=== PATIENT | male | born 1970 | race Caucasian/White ===

== ENCOUNTER 2020-09-19 00:42 | Inpatient (IN) | payer BC, MEDICARE ==
[~2020-09-19] VITALS: Ht 172.7 cm; Wt 115.9 kg
[2020-09-19 01:31] LABS: BASOPHILS % (AUTO) 0.2 % (0-1); EOSINOPHILS % (AUTO) 0 % (0-6); HEMATOCRIT 38.3 % (42.0-52.0); HEMOGLOBIN 13.2 g/dl (14.0-17.9); LYMPHOCYTES # (AUTO) 0.8 X10'3 (1.1-4.8); LYMPHOCYTES % (AUTO) 13.3 % (21-51); MEAN CORPUSCULAR HEMOGLOBIN 30.9 PG (27.0-31.0); MEAN CORPUSCULAR HGB CONC 34.6 g/dL (33.0-36.5); MEAN CORPUSCULAR VOLUME 89.1 FL (78-98); MEAN PLATELET VOLUME 9.5 FL (7.4-10.4); MONOCYTES # (AUTO) 0.5 X10'3 (0-0.9); MONOCYTES % (AUTO) 8.3 % (2-12); NEUTROPHILS # (AUTO) 4.4 X10'3 (1.8-7.7); NEUTROPHILS % (AUTO) 78.2 % (42-75); PLATELET COUNT 158 X10'3 (140-440); RED BLOOD COUNT 4.29 X10'6 (4.70-6.10); RED CELL DISTRIBUTION WIDTH 13.4 % (11.5-14.5); WHITE BLOOD COUNT 5.7 X10'3 (4.5-11.0)
[2020-09-19] MEDS ORDERED: LANS30CA56 PO (01:43)
[2020-09-19] MEDS ORDERED: MODA200T48 PO (01:44)
[2020-09-19] MEDS ORDERED: VILA40TA PO (01:45)
[2020-09-19] MEDS ORDERED: LOSA25TA96 PO (01:46)
[2020-09-19] MEDS ORDERED: DULO-31 PO (01:48)
[2020-09-19] MEDS ORDERED: AMLO2.5T2 PO (01:48)
[2020-09-19 01:49] LABS: ABG BASE EXCESS -0.9 mmol/L (-2.0-2.0); ABG HCO3 22.2 mmol/L (22.0-26.0); ABG OXYGEN SATURATION 92.2 % (94-97); ABG PCO2 (T) 34.1 mmHg (35.0-48.0); ABG PO2 (T) 64.5 mmHg (75.0-100.0); ALLEN'S TEST POSITIVE; FCOHb 0.4 % (0.0-3.9); FLOW 15 L/min; FMetHb 0.1 % (0.0-1.5); FO2Hb 91.7 % (94-97); PATIENT TEMPERATURE 38.1
[2020-09-19] MEDS ORDERED: LORA2TAB96 PO (01:50)
[2020-09-19] MEDS ORDERED: METO-467 PO (01:51)
[2020-09-19] MEDS ORDERED: ARMO250T4 PO (01:52)
[2020-09-19] MEDS ORDERED: ASEN10TA SL (01:53)
--- NOTE | 2020-09-19 01:54 | NUR ---
Mother YVETTE VALENTINE [[id number]] [phone]
[2020-09-19 01:57] LABS: ALANINE AMINOTRANSFERASE 55 U/L (12-78); ALBUMIN 2.8 G/DL (3.4-5.0); ALBUMIN/GLOBULIN RATIO 0.7 (1.1-1.5); ALKALINE PHOSPHATASE 61 IU/L (46-116); ANION GAP 12 (8-16); ASPARTATE AMINO TRANSFERASE 56 U/L (10-37); BILIRUBIN,TOTAL 0.5 MG/DL (0.1-1.0); BLOOD UREA NITROGEN 13 MG/DL (7-18); BUN/CREATININE RATIO 10.1 (5.4-32.0); CALCIUM 7.6 MG/DL (8.5-10.1); CHLORIDE 97 MMOL/L (99-107); CREATININE 1.29 MG/DL (0.60-1.10); GLUCOSE 111 MG/DL (70-104); POTASSIUM 3.2 MMOL/L (3.5-5.1); SODIUM 132 MMOL/L (135-145); TOTAL CARBON DIOXIDE 22.7 MMOL/L (24-32); TOTAL PROTEIN 6.6 G/DL (6.4-8.2); eGFR 59 ML/MIN
[2020-09-19] MEDS ORDERED: dexamethasone sod phosphate 10mg/ml inj IV STA (02:01)
[2020-09-19 02:20] LABS: C-REACTIVE PROTEIN 13.94 MG/DL (0.0-0.5); LACTATE DEHYDROGENASE 389 U/L (85-227)
[2020-09-19 02:23] LABS: FERRITIN 2984 NG/ML (26-388)
[2020-09-19] MEDS ORDERED: LORazepam 2 mg/ml vial IV ONE ×2 (02:50→03:25)
[2020-09-19 02:58] LABS: D-DIMER 0.55 MG/L FEU (0-0.50)
[2020-09-19 03:30] LABS: CLARITY,URINE CLEAR (Clear); COLOR,URINE YELLOW (Yellow); GLUCOSE, URINE NEGATIVE (Neg); KETONES,URINE 15 mg/dl (Neg); LEUKOCYTE ESTERASE ,URINE NEGATIVE (Neg); NITRITES, URINE NEGATIVE (Neg); OCCULT BLOOD,URINE SMALL (Neg); PROTEIN,URINE 100 mg/dl (Neg)
[2020-09-19] MEDS ORDERED: REMDESIVIR 100MG inj. 200 MG in normal saline 100ml IV soln 100 ML IV ONE (03:35)
[2020-09-19 03:37] LABS: UA COLLECTION TYPE URINAL
[2020-09-19 03:38] LABS: BACTERIA,URINE FEW /HPF (Neg); RBC,URINE 0-2 /HPF (0-2); SQUAMOUS EPITHELIAL CELL,UR FEW /LPF (FEW); WBC,URINE NONE SEEN /HPF (0-4)
--- NOTE | 2020-09-19 03:38 | NUR ---
pt becoming increasingly anxious, pulling ofF O2, and monitors. MD order for ativan to calm patient.
[2020-09-19] MEDS ORDERED: ondansetron/PF 4mg/2ml inj IV PRN (04:00)
[2020-09-19] MEDS ORDERED: magnesium hydroxide 30ml (MOM) UD suspension PO PRN (04:00)
[2020-09-19] MEDS ORDERED: acetaminophen 325mg tablet PO PRN (04:00)
--- NOTE | 2020-09-19 05:53 | NUR ---
Patient in room ED 1. I have received report from Cyndi GARNICA (Bianka GARNICA) and had the opportunity to ask questions and assume patient care.
--- NOTE | 2020-09-19 06:10 | NUR ---
pt to floor
[2020-09-19 06:11] VITALS: BP 144/91
--- NOTE | 2020-09-19 06:30 | NUR ---
Patient in room 4008. I have received report from Casandra GARNICA and had the opportunity to ask questions and assume patient care. Addendum: 09/19/20 at 0649 by Richa Lopez RN Problems reprioritized. Patient report given, questions answered & plan of care reviewed with Casandra GARNICA.
[2020-09-19] MEDS ORDERED: modafinil 100mg tablet PO SCH (08:00)
[2020-09-19] MEDS ORDERED: VILAZODONE HYDROCHLORIDE 40 MG PO SCH (08:00)
[2020-09-19] MEDS ORDERED: enoxaparin 100mg/ml syringe SUBCUT SCH (08:00)
[2020-09-19] MEDS ORDERED: dexamethasone inj 6 MG in normal saline 100ml IV soln 100 ML IV SCH (08:00)
[2020-09-19] MEDS: ARMODAFINIL 250 MG PO SCH (08:00)
[2020-09-19] MEDS: REMDESIVIR 100MG inj. 100 MG in normal saline 100ml IV soln 100 ML IV SCH (08:34)
[2020-09-19] MEDS: normal saline 1000ml 1,000 ML IV SCH ×2 (08:35→19:37)
[2020-09-19] MEDS: pantoprazole 40 MG vial IV SCH (08:36)
[2020-09-19] MEDS: duloxetine 30mg CAPSULE.DR PO SCH (08:37)
[2020-09-19] MEDS: asenapine 5mg TAB.SUBL SL SCH ×2 (08:38→19:32)
[2020-09-19] MEDS: LORazepam 1 MG tablet PO PRN ×3 (08:38→19:32)
[2020-09-19] MEDS: enoxaparin 60mg/0.6ml syringe SUBCUT SCH ×2 (08:39→19:32)
[2020-09-19 09:10] VITALS: BP 164/77
[2020-09-19] MEDS: losartan 50mg tablet PO SCH (09:10)
[2020-09-19] MEDS: metoprolol tartrate 25mg tablet PO SCH ×2 (09:10→19:32)
[2020-09-19] MEDS: amLODIPine 5mg tablet PO SCH (09:10)
[2020-09-19] MEDS: CefTRIAXone 2gm/D5W 50ml BAG 50 ML IV SCH (13:34)
[2020-09-19 14:00] VITALS: BP 106/81
--- NOTE | 2020-09-19 15:17 | NUR ---
PAGER ID: [phone] MESSAGE: [phone] Timothy, need robitussin for cough please [phone] FRANCISCO
--- NOTE | 2020-09-19 16:25 | NUR ---
Patient is forgetful/confused frequently takes oxygen off and desats to low 80's. Dr bledsoe, telemetry monitoring.
[2020-09-19] MEDS: guaiFENesin/codeine phos 10ml UD oral syrup PO PRN (16:33)
[2020-09-19 18:00] VITALS: BP 128/72
--- NOTE | 2020-09-19 18:00 | NUR ---
pt on 15L NRB and 15L High flow oxygen. sats 94%
--- NOTE | 2020-09-19 18:34 | NUR ---
Report to ROSA LEE RN
--- NOTE | 2020-09-19 18:35 | NUR ---
Patient in room ORTHO 4008. I have received report from FRANCISCO GARNICA and had the opportunity to ask questions and assume patient care.
[2020-09-19] MEDS: dexamethasone inj 6 MG in normal saline 100ml IV soln 100 ML IV SCH (19:31)
[2020-09-19 22:00] VITALS: BP 114/72
[2020-09-19] MEDS: LORazepam 2 mg/ml vial IV PRN (22:40)
--- NOTE | 2020-09-20 00:35 | NUR ---
DR. BRADSHAW WAS ON THE ORTHO NEURO FLOOR WAS MADE AWARE OF POSITIVE BLOOD CULTURE GRAM + COCCI AEROBIC BOTTLE DRAWN 09/19 AT 0131 LEFT AC AT 21.76 HRS. PATIENT IS ON ROCEPHIN. NO NEW ORDERS MADE.
[2020-09-20] MEDS: LORazepam 2 mg/ml vial IV PRN ×3 (01:50→22:56)
[2020-09-20 02:00] VITALS: BP 137/93
[2020-09-20] MEDS: diphenhydrAMINE 25mg capsule PO PRN ×2 (03:13→19:29)
[2020-09-20] MEDS: LORazepam 1 MG tablet PO PRN ×2 (05:11→17:36)
[2020-09-20] MEDS: guaiFENesin/codeine phos 10ml UD oral syrup PO PRN ×2 (05:11→22:56)
[2020-09-20 06:00] VITALS: BP 151/76
--- NOTE | 2020-09-20 06:33 | NUR ---
Problems reprioritized. Patient report given, questions answered & plan of care reviewed with .
--- NOTE | 2020-09-20 06:34 | NUR ---
Patient in room ORTHO 4008. I have received report from NAHUN Lopez and had the opportunity to ask questions and assume patient care.
[2020-09-20 06:59] LABS: BASOPHILS % (AUTO) 0.1 % (0-1); EOSINOPHILS % (AUTO) 0 % (0-6); HEMATOCRIT 40.3 % (42.0-52.0); HEMOGLOBIN 13.8 g/dl (14.0-17.9); LYMPHOCYTES # (AUTO) 0.6 X10'3 (1.1-4.8); LYMPHOCYTES % (AUTO) 8.9 % (21-51); MEAN CORPUSCULAR HEMOGLOBIN 30.6 PG (27.0-31.0); MEAN CORPUSCULAR HGB CONC 34.3 g/dL (33.0-36.5); MEAN CORPUSCULAR VOLUME 89.2 FL (78-98); MEAN PLATELET VOLUME 9.2 FL (7.4-10.4); MONOCYTES # (AUTO) 0.5 X10'3 (0-0.9); NEUTROPHILS # (AUTO) 5.4 X10'3 (1.8-7.7); PLATELET COUNT 201 X10'3 (140-440); RED BLOOD COUNT 4.52 X10'6 (4.70-6.10); RED CELL DISTRIBUTION WIDTH 13.4 % (11.5-14.5); WHITE BLOOD COUNT 6.6 X10'3 (4.5-11.0)
[2020-09-20 07:21] LABS: ALANINE AMINOTRANSFERASE 78 U/L (12-78); ALBUMIN 2.8 G/DL (3.4-5.0); ALBUMIN/GLOBULIN RATIO 0.6 (1.1-1.5); ALKALINE PHOSPHATASE 69 IU/L (46-116); ANION GAP 10 (8-16); ASPARTATE AMINO TRANSFERASE 80 U/L (10-37); BILIRUBIN,TOTAL 0.4 MG/DL (0.1-1.0); BLOOD UREA NITROGEN 14 MG/DL (7-18); BUN/CREATININE RATIO 14.7 (5.4-32.0); C-REACTIVE PROTEIN 10.28 MG/DL (0.0-0.5); CALCIUM 8.4 MG/DL (8.5-10.1); CHLORIDE 102 MMOL/L (99-107); CREATININE 0.95 MG/DL (0.60-1.10); GLUCOSE 129 MG/DL (70-104); SODIUM 138 MMOL/L (135-145); TOTAL PROTEIN 7.2 G/DL (6.4-8.2); eGFR 84 ML/MIN
[2020-09-20 07:22] LABS: D-DIMER 0.53 MG/L FEU (0-0.50)
[2020-09-20] MEDS: pantoprazole 40 MG vial IV SCH (07:29)
[2020-09-20] MEDS: dexamethasone inj 6 MG in normal saline 100ml IV soln 100 ML IV SCH ×2 (07:29→19:28)
[2020-09-20] MEDS: CefTRIAXone 2gm/D5W 50ml BAG 50 ML IV SCH (07:33)
[2020-09-20] MEDS: REMDESIVIR 100MG inj. 100 MG in normal saline 100ml IV soln 100 ML IV SCH (07:33)
[2020-09-20] MEDS: losartan 50mg tablet PO SCH (07:34)
[2020-09-20] MEDS: metoprolol tartrate 25mg tablet PO SCH ×2 (07:35→19:29)
[2020-09-20] MEDS: duloxetine 30mg CAPSULE.DR PO SCH (07:35)
[2020-09-20] MEDS: amLODIPine 5mg tablet PO SCH (07:36)
[2020-09-20] MEDS: ARMODAFINIL 250 MG PO SCH (07:36)
[2020-09-20] MEDS: asenapine 5mg TAB.SUBL SL SCH ×2 (07:37→19:29)
[2020-09-20] MEDS: enoxaparin 60mg/0.6ml syringe SUBCUT SCH ×2 (07:39→19:29)
[2020-09-20 10:00] VITALS: BP 118/75
[2020-09-20 14:00] VITALS: BP 101/63
[2020-09-20 18:00] VITALS: BP 117/61
--- NOTE | 2020-09-20 18:00 | NUR ---
RECEIVED REPORT FROM DEBORAH GARNICA AND ASSUMED PATIENT CARE
--- NOTE | 2020-09-20 18:25 | NUR ---
Problems reprioritized. Patient report given, questions answered & plan of care reviewed with NAHUN COOK.
[2020-09-20] MEDS: lactobacillus rhamnosus 10,000 MMU CELLS/CAPSULE PO SCH (19:29)
[2020-09-20 22:00] VITALS: BP 118/74
[2020-09-21] MEDS: guaiFENesin/codeine phos 10ml UD oral syrup PO PRN ×3 (01:49→08:16)
[2020-09-21] MEDS: diphenhydrAMINE 25mg capsule PO PRN ×2 (01:49→23:26)
[2020-09-21] MEDS: LORazepam 2 mg/ml vial IV PRN ×3 (01:49→23:59)
[2020-09-21 02:00] VITALS: BP 134/77
[2020-09-21] MEDS ORDERED: OLANZapine 2.5MG tablet PO ONE (03:15)
[2020-09-21] MEDS: normal saline 1000ml 1,000 ML IV SCH (04:00)
[2020-09-21] MEDS: LORazepam 1 MG tablet PO PRN ×3 (05:56→16:00)
[2020-09-21 06:00] VITALS: BP 120/79
--- NOTE | 2020-09-21 06:31 | NUR ---
REPORT GIVEN TO FRANCISCO GARNICA
[2020-09-21] MEDS: losartan 50mg tablet PO SCH (07:35)
[2020-09-21] MEDS: amLODIPine 5mg tablet PO SCH (07:35)
[2020-09-21] MEDS: metoprolol tartrate 25mg tablet PO SCH ×2 (07:35→19:30)
[2020-09-21 07:36] LABS: BASOPHILS % (AUTO) 0.1 % (0-1); EOSINOPHILS % (AUTO) 0 % (0-6); HEMOGLOBIN 13.3 g/dl (14.0-17.9); LYMPHOCYTES # (AUTO) 0.4 X10'3 (1.1-4.8); LYMPHOCYTES % (AUTO) 4.8 % (21-51); MEAN CORPUSCULAR HEMOGLOBIN 30.7 PG (27.0-31.0); MEAN CORPUSCULAR HGB CONC 34.1 g/dL (33.0-36.5); MEAN CORPUSCULAR VOLUME 89.8 FL (78-98); MEAN PLATELET VOLUME 8.9 FL (7.4-10.4); MONOCYTES # (AUTO) 0.5 X10'3 (0-0.9); MONOCYTES % (AUTO) 6.4 % (2-12); NEUTROPHILS # (AUTO) 7.1 X10'3 (1.8-7.7); NEUTROPHILS % (AUTO) 88.7 % (42-75); PLATELET COUNT 249 X10'3 (140-440); RED BLOOD COUNT 4.34 X10'6 (4.70-6.10); RED CELL DISTRIBUTION WIDTH 13.5 % (11.5-14.5)
[2020-09-21 07:50] LABS: D-DIMER 0.48 MG/L FEU (0-0.50)
[2020-09-21] MEDS: ARMODAFINIL 250 MG PO SCH (08:00)
[2020-09-21 08:06] LABS: ALANINE AMINOTRANSFERASE 72 U/L (12-78); ALBUMIN 2.7 G/DL (3.4-5.0); ALBUMIN/GLOBULIN RATIO 0.7 (1.1-1.5); ALKALINE PHOSPHATASE 64 IU/L (46-116); ANION GAP 11 (8-16); ASPARTATE AMINO TRANSFERASE 54 U/L (10-37); BILIRUBIN,TOTAL 0.4 MG/DL (0.1-1.0); BLOOD UREA NITROGEN 17 MG/DL (7-18); BUN/CREATININE RATIO 16.2 (5.4-32.0); C-REACTIVE PROTEIN 4.77 MG/DL (0.0-0.5); CHLORIDE 104 MMOL/L (99-107); CREATININE 1.05 MG/DL (0.60-1.10); GLUCOSE 118 MG/DL (70-104); POTASSIUM 3.8 MMOL/L (3.5-5.1); SODIUM 140 MMOL/L (135-145); TOTAL CARBON DIOXIDE 25.1 MMOL/L (24-32); TOTAL PROTEIN 6.8 G/DL (6.4-8.2); eGFR 74 ML/MIN
[2020-09-21] MEDS: CefTRIAXone 2gm/D5W 50ml BAG 50 ML IV SCH (08:15)
[2020-09-21] MEDS: lactobacillus rhamnosus 10,000 MMU CELLS/CAPSULE PO SCH ×2 (08:16→19:11)
[2020-09-21] MEDS: pantoprazole 40 MG vial IV SCH (08:16)
[2020-09-21] MEDS: asenapine 5mg TAB.SUBL SL SCH ×2 (08:17→19:12)
[2020-09-21] MEDS: duloxetine 30mg CAPSULE.DR PO SCH (08:17)
[2020-09-21] MEDS: enoxaparin 60mg/0.6ml syringe SUBCUT SCH (08:18)
[2020-09-21] MEDS: dexamethasone inj 6 MG in normal saline 100ml IV soln 100 ML IV SCH ×2 (08:19→20:55)
[2020-09-21 10:00] VITALS: BP 114/75
[2020-09-21] MEDS ORDERED: furosemide 20 MG/2 ML vial IV ONE (10:20)
[2020-09-21] MEDS: REMDESIVIR 100MG inj. 100 MG in normal saline 100ml IV soln 100 ML IV SCH (11:34)
[2020-09-21 18:00] VITALS: BP 120/72
--- NOTE | 2020-09-21 18:37 | NUR ---
Patient in room ORTHO 4008. I have received report from toño Guajardo and had the opportunity to ask questions and assume patient care.
[2020-09-21] MEDS: enoxaparin 40mg/0.4ml syringe SUBCUT SCH (19:11)
[2020-09-21 22:00] VITALS: BP 119/79
[2020-09-22] MEDS: guaiFENesin/codeine phos 10ml UD oral syrup PO PRN ×3 (00:34→23:56)
[2020-09-22 02:00] VITALS: BP 129/56
[2020-09-22] MEDS: LORazepam 1 MG tablet PO PRN ×3 (05:48→23:11)
--- NOTE | 2020-09-22 06:25 | NUR ---
Problems reprioritized. Patient report given, questions answered & plan of care reviewed with NAHUN ROLLINS.
--- NOTE | 2020-09-22 06:27 | NUR ---
Patient in room ORTHO 4008. I have received report from NAHUN Muñoz and had the opportunity to ask questions and assume patient care.
[2020-09-22 06:57] VITALS: BP 115/72
[2020-09-22 07:22] LABS: BASOPHILS % (AUTO) 0.1 % (0-1); EOSINOPHILS % (AUTO) 0 % (0-6); HEMATOCRIT 41.3 % (42.0-52.0); LYMPHOCYTES # (AUTO) 0.5 X10'3 (1.1-4.8); LYMPHOCYTES % (AUTO) 6.9 % (21-51); MEAN CORPUSCULAR HEMOGLOBIN 30.4 PG (27.0-31.0); MEAN CORPUSCULAR HGB CONC 33.9 g/dL (33.0-36.5); MEAN CORPUSCULAR VOLUME 89.9 FL (78-98); MEAN PLATELET VOLUME 8.6 FL (7.4-10.4); MONOCYTES # (AUTO) 0.5 X10'3 (0-0.9); MONOCYTES % (AUTO) 7.3 % (2-12); NEUTROPHILS # (AUTO) 6.1 X10'3 (1.8-7.7); NEUTROPHILS % (AUTO) 85.7 % (42-75); PLATELET COUNT 302 X10'3 (140-440); RED BLOOD COUNT 4.59 X10'6 (4.70-6.10); RED CELL DISTRIBUTION WIDTH 13.5 % (11.5-14.5); WHITE BLOOD COUNT 7.1 X10'3 (4.5-11.0)
[2020-09-22 07:29] LABS: D-DIMER 0.69 MG/L FEU (0-0.50)
[2020-09-22 07:36] LABS: ALANINE AMINOTRANSFERASE 75 U/L (12-78); ALBUMIN 2.9 G/DL (3.4-5.0); ALBUMIN/GLOBULIN RATIO 0.7 (1.1-1.5); ALKALINE PHOSPHATASE 71 IU/L (46-116); ANION GAP 10 (8-16); ASPARTATE AMINO TRANSFERASE 56 U/L (10-37); BILIRUBIN,TOTAL 0.5 MG/DL (0.1-1.0); BLOOD UREA NITROGEN 17 MG/DL (7-18); C-REACTIVE PROTEIN 3.33 MG/DL (0.0-0.5); CALCIUM 8.3 MG/DL (8.5-10.1); CHLORIDE 103 MMOL/L (99-107); CREATININE 1.06 MG/DL (0.60-1.10); GLUCOSE 114 MG/DL (70-104); POTASSIUM 3.8 MMOL/L (3.5-5.1); SODIUM 140 MMOL/L (135-145); TOTAL CARBON DIOXIDE 26.9 MMOL/L (24-32); eGFR 74 ML/MIN
[2020-09-22] MEDS: ARMODAFINIL 250 MG PO SCH (07:52)
[2020-09-22] MEDS: pantoprazole 40mg Tablet.DR PO SCH (07:59)
[2020-09-22] MEDS: REMDESIVIR 100MG inj. 100 MG in normal saline 100ml IV soln 100 ML IV SCH (08:00)
[2020-09-22] MEDS: dexamethasone inj 6 MG in normal saline 100ml IV soln 100 ML IV SCH ×2 (08:00→19:18)
[2020-09-22] MEDS: CefTRIAXone 2gm/D5W 50ml BAG 50 ML IV SCH (08:00)
[2020-09-22] MEDS: lactobacillus rhamnosus 10,000 MMU CELLS/CAPSULE PO SCH ×2 (08:01→19:18)
[2020-09-22] MEDS: metoprolol tartrate 25mg tablet PO SCH ×2 (08:01→19:31)
[2020-09-22] MEDS: duloxetine 30mg CAPSULE.DR PO SCH (08:01)
[2020-09-22] MEDS: losartan 50mg tablet PO SCH (08:01)
[2020-09-22] MEDS: amLODIPine 5mg tablet PO SCH (08:02)
[2020-09-22] MEDS: asenapine 5mg TAB.SUBL SL SCH ×2 (08:02→19:19)
[2020-09-22] MEDS: enoxaparin 40mg/0.4ml syringe SUBCUT SCH ×2 (08:03→19:20)
[2020-09-22] MEDS: LORazepam 2 mg/ml vial IV PRN ×3 (08:48→20:55)
[2020-09-22 09:30] VITALS: BP 126/75
[2020-09-22] MEDS: mag hydrox/Alum hydrox/simeth 30ml oral suspension PO PRN (14:23)
[2020-09-22 14:45] VITALS: BP 112/74
[2020-09-22 18:00] VITALS: BP 123/85
--- NOTE | 2020-09-22 18:12 | NUR ---
Problems reprioritized. Patient report given, questions answered & plan of care reviewed with NAHUN Garber.
--- NOTE | 2020-09-22 18:12 | NUR ---
Patient in room ORTHO 4008. I have received report from Pam GARNICA and had the opportunity to ask questions and assume patient care.
[2020-09-22 22:00] VITALS: BP 115/77
[2020-09-22] MEDS: diphenhydrAMINE 25mg capsule PO PRN (22:12)
--- NOTE | 2020-09-23 00:40 | NUR ---
neurophysiology tech called with low oxygen saturation 68%, I went into room and patient was c/o chest pain. He did not have any oxygen on so I replaced the nasal cannulae and NRB mask. His oxygen saturation went up to 91% and he no longer had chest pain. I stayed with him for awhile and had him deep breathe to help with his anxiety and gave him ear plugs and a eye mask to help him sleep better.
[2020-09-23 02:00] VITALS: BP 136/93
[2020-09-23] MEDS: LORazepam 2 mg/ml vial IV PRN ×3 (03:35→22:11)
--- NOTE | 2020-09-23 03:42 | NUR ---
Patient took off his O2 and his tele monitor. central office technician called saying patient was in the 60's. Checked on patient and he said he wants to leave AMA. I explained to him that it is not safe for him to go home yet because he is on 15L of oxygen still and when he takes it off his O2 drops into the 60's. Explained that it is not good for his O2 to be that low and he is not safe for discharge. He stated understanding but wants to talk to the DrLuma today about going home. Patient has continuously taken off his O2 tonight and dropped into the 60's and 70's. Explained to patient that if he is going to stand up to go to the bathroom that he needs to keep his O2 on and that the tubing is long enough to reach. Patient stated "I am not being helped here" and that he feels like his is more trouble to us. He states "I would be better at home."
[2020-09-23] MEDS: normal saline 1000ml 1,000 ML IV SCH (04:00)
[2020-09-23 06:00] VITALS: BP 111/81
--- NOTE | 2020-09-23 06:24 | NUR ---
Problems reprioritized. Patient report given, questions answered & plan of care reviewed with Marianela GARNICA.
--- NOTE | 2020-09-23 07:16 | NUR ---
Patient up to restroom without oxygen, removed tele, O2 at 72%. Despite education patient wants to go without oxygen to restroom
[2020-09-23 07:45] LABS: BASOPHILS % (AUTO) 0 % (0-1); EOSINOPHILS % (AUTO) 0 % (0-6); HEMATOCRIT 40.2 % (42.0-52.0); HEMOGLOBIN 13.6 g/dl (14.0-17.9); LYMPHOCYTES # (AUTO) 0.6 X10'3 (1.1-4.8); LYMPHOCYTES % (AUTO) 8.1 % (21-51); MEAN CORPUSCULAR HEMOGLOBIN 30.5 PG (27.0-31.0); MEAN CORPUSCULAR HGB CONC 33.8 g/dL (33.0-36.5); MEAN CORPUSCULAR VOLUME 90.4 FL (78-98); MEAN PLATELET VOLUME 8.4 FL (7.4-10.4); MONOCYTES # (AUTO) 0.6 X10'3 (0-0.9); MONOCYTES % (AUTO) 8.2 % (2-12); NEUTROPHILS # (AUTO) 6.4 X10'3 (1.8-7.7); NEUTROPHILS % (AUTO) 83.7 % (42-75); PLATELET COUNT 326 X10'3 (140-440); RED BLOOD COUNT 4.44 X10'6 (4.70-6.10); RED CELL DISTRIBUTION WIDTH 13.5 % (11.5-14.5); WHITE BLOOD COUNT 7.6 X10'3 (4.5-11.0)
[2020-09-23] MEDS: duloxetine 30mg CAPSULE.DR PO SCH (07:59)
[2020-09-23] MEDS: pantoprazole 40mg Tablet.DR PO SCH (07:59)
[2020-09-23] MEDS: lactobacillus rhamnosus 10,000 MMU CELLS/CAPSULE PO SCH ×2 (07:59→19:03)
[2020-09-23] MEDS: asenapine 5mg TAB.SUBL SL SCH ×2 (07:59→19:03)
[2020-09-23] MEDS: ARMODAFINIL 250 MG PO SCH (08:00)
[2020-09-23] MEDS: metoprolol tartrate 25mg tablet PO SCH ×2 (08:03→19:04)
[2020-09-23] MEDS: dexamethasone inj 6 MG in normal saline 100ml IV soln 100 ML IV SCH (08:03)
[2020-09-23] MEDS: losartan 50mg tablet PO SCH (08:04)
[2020-09-23] MEDS: amLODIPine 5mg tablet PO SCH (08:04)
[2020-09-23 08:05] LABS: ALANINE AMINOTRANSFERASE 84 U/L (12-78); ALBUMIN 2.7 G/DL (3.4-5.0); ALBUMIN/GLOBULIN RATIO 0.7 (1.1-1.5); ALKALINE PHOSPHATASE 70 IU/L (46-116); ANION GAP 6 (8-16); ASPARTATE AMINO TRANSFERASE 55 U/L (10-37); BILIRUBIN,TOTAL 0.5 MG/DL (0.1-1.0); BLOOD UREA NITROGEN 20 MG/DL (7-18); BUN/CREATININE RATIO 18.9 (5.4-32.0); C-REACTIVE PROTEIN 1.83 MG/DL (0.0-0.5); CALCIUM 8.2 MG/DL (8.5-10.1); CHLORIDE 103 MMOL/L (99-107); CREATININE 1.06 MG/DL (0.60-1.10); GLUCOSE 110 MG/DL (70-104); POTASSIUM 4.2 MMOL/L (3.5-5.1); SODIUM 139 MMOL/L (135-145); TOTAL PROTEIN 6.6 G/DL (6.4-8.2); eGFR 74 ML/MIN
[2020-09-23] MEDS: enoxaparin 40mg/0.4ml syringe SUBCUT SCH ×2 (08:07→19:04)
[2020-09-23] MEDS: CefTRIAXone 2gm/D5W 50ml BAG 50 ML IV SCH (09:00)
[2020-09-23 10:15] VITALS: BP 99/67
[2020-09-23] MEDS: LORazepam 1 MG tablet PO PRN ×2 (11:09→19:03)
--- NOTE | 2020-09-23 12:09 | NUR ---
Initial: Pt presented with c/o SOB and admit for COVID-19 with hypoxia and confusion. Per physical assessment pt A/O x 4 though confused at times. Pt on a CHO controlled diet documented with 75-100% PO intake. D/w dietary to send double protein TID for satiety and increased protein needs secondary to admitting dx. Pt with no documented PMH of DM and BG range 110-129 throughout LOS while receiving Decadron, recommend diet advancement to regular. LBM 09/21. Will continue to follow and monitor need for further nutrition intervention. Recommendations: 1) Advance to regular diet given no PMH DM and BG levels well controlled 2) Double eggs q breakfast, double meat BIDLD 3) Bowel care per rx 4) Scaled weights per rx Addendum: 09/23/20 at [address] Amended: Links added.
[2020-09-23 14:00] VITALS: BP 118/74
[2020-09-23 18:00] VITALS: BP 139/83
--- NOTE | 2020-09-23 18:17 | NUR ---
Problems reprioritized. Patient report given, questions answered & plan of care reviewed with India GARNICA.
[2020-09-23] MEDS: dexamethasone inj 6 MG in normal saline 50ml IV soln 50 ML IV SCH (19:04)
[2020-09-23] MEDS: guaiFENesin/codeine phos 10ml UD oral syrup PO PRN ×2 (19:05→22:37)
--- NOTE | 2020-09-23 19:53 | NUR ---
Spoke to patient about his chart being confidential. He stated that he is okay with his , Katie getting information, his daughter Arjun (also goes by Jennifer) and his mother Maribell.
[2020-09-23 22:00] VITALS: BP 113/68
[2020-09-23] MEDS: mag hydrox/Alum hydrox/simeth 30ml oral suspension PO PRN (22:24)
[2020-09-23] MEDS: diphenhydrAMINE 25mg capsule PO PRN (23:58)
--- NOTE | 2020-09-24 00:24 | NUR ---
PAGER ID: [phone] MESSAGE: India vidal [phone]. Mr Aguirre in [phone] is complaining of a headache but has nothing for pain ordered.
[2020-09-24] MEDS ORDERED: acetaminophen 325mg tablet PO ONE (00:30)
[2020-09-24 02:00] VITALS: BP 131/82
[2020-09-24] MEDS: guaiFENesin/codeine phos 10ml UD oral syrup PO PRN ×3 (03:08→22:26)
[2020-09-24 06:00] VITALS: BP 118/79
--- NOTE | 2020-09-24 06:25 | NUR ---
Patient in room ORTHO 4008. I have received report from Marianela GARNICA and had the opportunity to ask questions and assume patient care. Addendum: 09/24/20 at 0627 by India Schmidt RN Problems reprioritized. Patient report given, questions answered & plan of care reviewed with Marianela GARNICA.
[2020-09-24 07:34] LABS: BASOPHILS % (AUTO) 0.1 % (0-1); EOSINOPHILS % (AUTO) 0 % (0-6); HEMATOCRIT 41.5 % (42.0-52.0); HEMOGLOBIN 14.1 g/dl (14.0-17.9); LYMPHOCYTES # (AUTO) 0.6 X10'3 (1.1-4.8); LYMPHOCYTES % (AUTO) 6.6 % (21-51); MEAN CORPUSCULAR HEMOGLOBIN 30.7 PG (27.0-31.0); MEAN CORPUSCULAR VOLUME 90.4 FL (78-98); MEAN PLATELET VOLUME 8.7 FL (7.4-10.4); MONOCYTES # (AUTO) 0.7 X10'3 (0-0.9); MONOCYTES % (AUTO) 7.8 % (2-12); NEUTROPHILS # (AUTO) 8.2 X10'3 (1.8-7.7); NEUTROPHILS % (AUTO) 85.5 % (42-75); PLATELET COUNT 390 X10'3 (140-440); RED BLOOD COUNT 4.59 X10'6 (4.70-6.10); RED CELL DISTRIBUTION WIDTH 13.2 % (11.5-14.5); WHITE BLOOD COUNT 9.6 X10'3 (4.5-11.0)
[2020-09-24] MEDS: asenapine 5mg TAB.SUBL SL SCH ×2 (07:42→19:03)
[2020-09-24] MEDS: duloxetine 30mg CAPSULE.DR PO SCH (07:42)
[2020-09-24 07:43] LABS: ALANINE AMINOTRANSFERASE 97 U/L (12-78); ALBUMIN 2.8 G/DL (3.4-5.0); ALBUMIN/GLOBULIN RATIO 0.7 (1.1-1.5); ALKALINE PHOSPHATASE 71 IU/L (46-116); ANION GAP 7 (8-16); ASPARTATE AMINO TRANSFERASE 54 U/L (10-37); BILIRUBIN,TOTAL 0.5 MG/DL (0.1-1.0); BLOOD UREA NITROGEN 23 MG/DL (7-18); BUN/CREATININE RATIO 20.9 (5.4-32.0); CALCIUM 8.4 MG/DL (8.5-10.1); CHLORIDE 103 MMOL/L (99-107); GLUCOSE 103 MG/DL (70-104); POTASSIUM 4.2 MMOL/L (3.5-5.1); SODIUM 139 MMOL/L (135-145); TOTAL CARBON DIOXIDE 28.6 MMOL/L (24-32); TOTAL PROTEIN 6.8 G/DL (6.4-8.2); eGFR 71 ML/MIN
[2020-09-24] MEDS: losartan 50mg tablet PO SCH (07:43)
[2020-09-24] MEDS: lactobacillus rhamnosus 10,000 MMU CELLS/CAPSULE PO SCH ×2 (07:43→19:03)
[2020-09-24] MEDS: metoprolol tartrate 25mg tablet PO SCH ×2 (07:43→19:04)
[2020-09-24] MEDS: amLODIPine 5mg tablet PO SCH (07:43)
[2020-09-24] MEDS: pantoprazole 40mg Tablet.DR PO SCH (07:44)
[2020-09-24] MEDS: enoxaparin 40mg/0.4ml syringe SUBCUT SCH ×2 (07:47→19:04)
[2020-09-24] MEDS: dexamethasone inj 6 MG in normal saline 50ml IV soln 50 ML IV SCH ×2 (07:53→19:04)
[2020-09-24] MEDS: ARMODAFINIL 250 MG PO SCH (08:00)
[2020-09-24] MEDS: CefTRIAXone 2gm/D5W 50ml BAG 50 ML IV SCH (08:04)
[2020-09-24 10:00] VITALS: BP 132/79
[2020-09-24] MEDS ORDERED: zolpidem 5mg tablet PO PRN (11:20)
[2020-09-24 14:00] VITALS: BP 126/70
[2020-09-24] MEDS: LORazepam 1 MG tablet PO PRN ×2 (14:37→22:26)
[2020-09-24 18:00] VITALS: BP 105/75
--- NOTE | 2020-09-24 18:09 | NUR ---
Problems reprioritized. Patient report given, questions answered & plan of care reviewed with India GARNICA.
--- NOTE | 2020-09-24 18:10 | NUR ---
Patient in room ORTHO 4008. I have received report from Marianela GARNICA and had the opportunity to ask questions and assume patient care.
[2020-09-24 22:00] VITALS: BP 112/60
[2020-09-24] MEDS: mag hydrox/Alum hydrox/simeth 30ml oral suspension PO PRN (22:18)
[2020-09-24] MEDS: diphenhydrAMINE 25mg capsule PO PRN (23:06)
[2020-09-24] MEDS: LORazepam 2 mg/ml vial IV PRN (23:42)
[2020-09-25 02:00] VITALS: BP 119/73
[2020-09-25] MEDS: normal saline 1000ml 1,000 ML IV SCH (04:00)
[2020-09-25] MEDS: guaiFENesin/codeine phos 10ml UD oral syrup PO PRN ×3 (04:36→23:41)
[2020-09-25 06:00] VITALS: BP 122/84
--- NOTE | 2020-09-25 06:30 | NUR ---
Patient in room ORTHO 4008. I have received report from India GARNICA and had the opportunity to ask questions and assume patient care.
[2020-09-25] MEDS: amLODIPine 5mg tablet PO SCH (08:00)
[2020-09-25] MEDS: ARMODAFINIL 250 MG PO SCH (08:00)
[2020-09-25] MEDS: losartan 50mg tablet PO SCH (08:00)
[2020-09-25] MEDS: LORazepam 1 MG tablet PO PRN ×3 (10:08→22:28)
[2020-09-25] MEDS: lactobacillus rhamnosus 10,000 MMU CELLS/CAPSULE PO SCH ×2 (10:08→22:03)
[2020-09-25] MEDS: CefTRIAXone 2gm/D5W 50ml BAG 50 ML IV SCH (10:08)
[2020-09-25] MEDS: duloxetine 30mg CAPSULE.DR PO SCH (10:09)
[2020-09-25] MEDS: asenapine 5mg TAB.SUBL SL SCH ×2 (10:09→22:04)
[2020-09-25] MEDS: metoprolol tartrate 25mg tablet PO SCH ×2 (10:09→20:00)
[2020-09-25] MEDS: enoxaparin 40mg/0.4ml syringe SUBCUT SCH ×2 (10:10→22:28)
[2020-09-25] MEDS: pantoprazole 40mg Tablet.DR PO SCH (10:11)
[2020-09-25] MEDS: dexamethasone inj 6 MG in normal saline 50ml IV soln 50 ML IV SCH ×2 (10:11→22:03)
[2020-09-25 11:00] VITALS: BP 114/77
[2020-09-25] MEDS ORDERED: temazepam 15mg capsule PO PRN (14:45)
[2020-09-25 15:00] VITALS: BP 127/73
[2020-09-25 18:00] VITALS: BP 116/71
--- NOTE | 2020-09-25 18:21 | NUR ---
Problems reprioritized. Patient report given, questions answered & plan of care reviewed with Jossie GARNICA.
[2020-09-25 22:00] VITALS: BP 117/69
[2020-09-25] MEDS: LORazepam 2 mg/ml vial IV PRN (23:50)
[2020-09-26 06:00] VITALS: BP 96/56
--- NOTE | 2020-09-26 06:50 | NUR ---
Patient in room ORTHO 4008. I have received report from NAHUN Sethi and had the opportunity to ask questions and assume patient care.
[2020-09-26] MEDS: ARMODAFINIL 250 MG PO SCH (07:51)
[2020-09-26] MEDS: dexamethasone inj 6 MG in normal saline 50ml IV soln 50 ML IV SCH (07:53)
[2020-09-26] MEDS: pantoprazole 40mg Tablet.DR PO SCH (07:53)
[2020-09-26] MEDS: CefTRIAXone 2gm/D5W 50ml BAG 50 ML IV SCH (07:54)
[2020-09-26] MEDS: lactobacillus rhamnosus 10,000 MMU CELLS/CAPSULE PO SCH ×2 (07:54→20:13)
[2020-09-26] MEDS: amLODIPine 5mg tablet PO SCH (07:55)
[2020-09-26] MEDS: metoprolol tartrate 25mg tablet PO SCH ×2 (07:55→20:00)
[2020-09-26] MEDS: duloxetine 30mg CAPSULE.DR PO SCH (07:55)
[2020-09-26] MEDS: losartan 50mg tablet PO SCH (07:56)
[2020-09-26] MEDS: asenapine 5mg TAB.SUBL SL SCH ×2 (07:57→20:12)
[2020-09-26] MEDS: enoxaparin 40mg/0.4ml syringe SUBCUT SCH ×2 (07:59→20:13)
[2020-09-26 10:00] VITALS: BP 125/60
[2020-09-26] MEDS: LORazepam 1 MG tablet PO PRN (10:45)
[2020-09-26 14:00] VITALS: BP 127/62
--- NOTE | 2020-09-26 18:23 | NUR ---
Problems reprioritized. Patient report given, questions answered & plan of care reviewed with NAHUN COOK.
--- NOTE | 2020-09-26 18:27 | NUR ---
RECEIVED REPORT FROM DEBORAH GARNICA AND ASSUMED PATIENT CARE
[2020-09-26 18:29] VITALS: BP 123/58
[2020-09-26] MEDS: dexamethasone inj 4 MG in normal saline 50ml IV soln 50 ML IV SCH (20:12)
[2020-09-26] MEDS: guaiFENesin/codeine phos 10ml UD oral syrup PO PRN (20:13)
[2020-09-26] MEDS: LORazepam 2 mg/ml vial IV PRN ×2 (20:13→23:05)
[2020-09-26] MEDS: traZODone 50mg tablet PO SCH (20:13)
[2020-09-26] MEDS: diphenhydrAMINE 25mg capsule PO PRN (20:15)
[2020-09-26 22:00] VITALS: BP 146/84
[2020-09-27 02:00] VITALS: BP 137/85
[2020-09-27] MEDS: LORazepam 2 mg/ml vial IV PRN (03:13)
--- NOTE | 2020-09-27 06:23 | NUR ---
REPORT GIVEN TO BANDAR GARNICA
[2020-09-27 07:16] VITALS: BP 117/82
[2020-09-27] MEDS: ARMODAFINIL 250 MG PO SCH (08:00)
[2020-09-27] MEDS: lactobacillus rhamnosus 10,000 MMU CELLS/CAPSULE PO SCH ×2 (08:18→19:48)
[2020-09-27] MEDS: LORazepam 1 MG tablet PO PRN (08:18)
[2020-09-27] MEDS: amLODIPine 5mg tablet PO SCH (08:19)
[2020-09-27] MEDS: metoprolol tartrate 25mg tablet PO SCH ×2 (08:19→19:48)
[2020-09-27] MEDS: duloxetine 30mg CAPSULE.DR PO SCH (08:19)
[2020-09-27] MEDS: pantoprazole 40mg Tablet.DR PO SCH (08:19)
[2020-09-27] MEDS: losartan 50mg tablet PO SCH (08:19)
[2020-09-27] MEDS: enoxaparin 40mg/0.4ml syringe SUBCUT SCH ×2 (08:20→19:49)
[2020-09-27] MEDS: asenapine 5mg TAB.SUBL SL SCH ×2 (08:20→19:49)
[2020-09-27] MEDS: dexamethasone inj 4 MG in normal saline 50ml IV soln 50 ML IV SCH ×2 (08:23→19:48)
[2020-09-27 08:25] LABS: D-DIMER 0.52 MG/L FEU (0-0.50)
[2020-09-27 10:00] VITALS: BP 117/73
[2020-09-27 14:00] VITALS: BP 107/60
[2020-09-27] MEDS ORDERED: LORazepam 1 MG tablet PO PRN (14:00)
[2020-09-27 18:00] VITALS: BP 100/58
--- NOTE | 2020-09-27 18:00 | NUR ---
RECEIVED REPORT FROM BANDAR GARNICA AND ASSUMED PATIENT CARE
--- NOTE | 2020-09-27 18:15 | NUR ---
Problems reprioritized. Patient report given, questions answered & plan of care reviewed with NAHUN Gabriel.
[2020-09-27] MEDS: LORazepam 1 MG tablet PO SCH (19:48)
[2020-09-27] MEDS: traZODone 50mg tablet PO SCH (19:49)
[2020-09-27 22:00] VITALS: BP 100/58
[2020-09-27] MEDS: guaiFENesin/codeine phos 10ml UD oral syrup PO PRN (22:32)
[2020-09-28] MEDS: LORazepam 1 MG tablet PO SCH ×2 (01:37→07:46)
[2020-09-28 02:00] VITALS: BP 113/72
[2020-09-28] MEDS: guaiFENesin/codeine phos 10ml UD oral syrup PO PRN ×3 (03:32→11:52)
[2020-09-28 06:00] VITALS: BP 119/84
--- NOTE | 2020-09-28 06:01 | NUR ---
REPORT GIVEN TO RIK GARNICA
--- NOTE | 2020-09-28 06:15 | NUR ---
received report from toño grier
[2020-09-28] MEDS: ARMODAFINIL 250 MG PO SCH (07:36)
[2020-09-28] MEDS: asenapine 5mg TAB.SUBL SL SCH (07:42)
[2020-09-28] MEDS: metoprolol tartrate 25mg tablet PO SCH (07:44)
[2020-09-28] MEDS: amLODIPine 5mg tablet PO SCH (07:44)
[2020-09-28] MEDS: lactobacillus rhamnosus 10,000 MMU CELLS/CAPSULE PO SCH (07:45)
[2020-09-28] MEDS: duloxetine 30mg CAPSULE.DR PO SCH (07:45)
[2020-09-28] MEDS: losartan 50mg tablet PO SCH (07:45)
[2020-09-28] MEDS: pantoprazole 40mg Tablet.DR PO SCH (07:45)
[2020-09-28] MEDS: enoxaparin 40mg/0.4ml syringe SUBCUT SCH (07:46)
[2020-09-28] MEDS ORDERED: DEXAMETHASONE 6 MG TABLET PO SCH (08:00)
--- NOTE | 2020-09-28 09:37 | NUR ---
O2 Sat at rest on room air:__87_% If below 89%: Recovery O2 Sat at rest on _4__LPM:___%:_93__% via nasal cannula (mask/nasal cannula, etc..) No further documentation is necessary. If O2 Sat did not drop below 89% on room air,ambulate patient on room air. O2 Sat while ambulating on room air:___% Recovery O2 Sat while ambulating on ___LPM:___% No further documentation is necessary. If patient does not drop below 89% while ambulating, he/she does not qualify for home O2.
[2020-09-28 10:00] VITALS: BP 125/76
[2020-09-28] MEDS ORDERED: DEXA6TAB PO (10:17)
--- NOTE | 2020-09-28 12:32 | NUR ---
pt d/c with instructions, understanding of instructions and with all belongings including home 02 in wheelchair to private vehicle to go home and f/u w/pcp
[2020-09-28] MEDS ORDERED: ASPI-1264 PO (18:16)
[2020-09-29] MEDS ORDERED: enoxaparin 40mg/0.4ml syringe SUBCUT SCH (08:00)
== END 2020-09-28 12:26 | disposition home or self-care (01) | DRG 177 ==
LOC: ER 00:43 → EEVIPCON 03:58 → ED HOLD 03:58 → ORTHO 4S 06:48
PROVIDERS: ADMIT Internal Medicine; ATTEND Internal Medicine
PROC: XW033E5 Introduction of Remdesivir Anti-infective into Peripheral Vein, Percutaneous Approach, New Technology Group 5 (ICD-10-PCS; principal; 2020-09-19)
PROC: 5A0935A Assistance with Respiratory Ventilation, Less than 24 Consecutive Hours, High Flow/Velocity Cannula (ICD-10-PCS; 2020-09-19)
PROC: 5A0945A Assistance with Respiratory Ventilation, 24-96 Consecutive Hours, High Flow/Velocity Cannula (ICD-10-PCS; 2020-09-20)
PROC: 5A0945A Assistance with Respiratory Ventilation, 24-96 Consecutive Hours, High Flow/Velocity Cannula (ICD-10-PCS; 2020-09-23)
PROC: 5A0935A Assistance with Respiratory Ventilation, Less than 24 Consecutive Hours, High Flow/Velocity Cannula (ICD-10-PCS; 2020-09-26)
PROC: 5A0935A Assistance with Respiratory Ventilation, Less than 24 Consecutive Hours, High Flow/Velocity Cannula (ICD-10-PCS; 2020-09-27)
PROC: 5A0935A Assistance with Respiratory Ventilation, Less than 24 Consecutive Hours, High Flow/Velocity Cannula (ICD-10-PCS; 2020-09-28)
DX: U07.1 COVID-19 (principal); J12.82 Pneumonia due to coronavirus disease 2019; J96.01 Acute respiratory failure with hypoxia; G93.41 Metabolic encephalopathy; E66.9 Obesity, unspecified; E87.6 Hypokalemia; F41.8 Other specified anxiety disorders; F43.10 Post-traumatic stress disorder, unspecified; F39 Unspecified mood [affective] disorder; G47.33 Obstructive sleep apnea (adult) (pediatric); G47.00 Insomnia, unspecified; I10 Essential (primary) hypertension; K21.9 Gastro-esophageal reflux disease without esophagitis; Z68.38 Body mass index [BMI] 38.0-38.9, adult; Z79.82 Long term (current) use of aspirin; Z79.899 Other long term (current) drug therapy
CPT/HCPCS: 36415; 36600; 71045; 76937; 80053; 81001; 82728; 82803; 83605; 83615; 83880; 84145; 85018; 85025; 85379; 85384; 86140; 87040; 87077; 87081; 87186; 93005; 94760; 96365; 96375; 96376; 99285; C9113; G0378; J0696; J1100; J1650; J1940; J2060; J7030; J8540; Q0163

== ENCOUNTER 2020-09-30 07:29 | Emergency (ER) | payer BC ==
[~2020-09-30] VITALS: Ht 172.7 cm; Wt 115.9 kg
[~2020-09-30 07:29] MED LIST: AMLO2.5T2 PO; ARMO250T4 PO; ASEN10TA SL; ASPI-1264 PO; DEXA6TAB PO; DULO-31 PO; LANS30CA56 PO; LORA2TAB96 PO; LOSA25TA96 PO; METO-467 PO; VILA40TA PO
[2020-09-30] MEDS ORDERED: dexamethasone sod phosphate 10mg/ml inj IV STA (07:35)
[2020-09-30] MEDS ORDERED: iohexol 350MG/ML 100ml bottle IV ONE (08:08)
--- NOTE | 2020-09-30 08:08 | NUR ---
TRIED TO START IV TWICE NOT SUCCESSFULL ,PAGED PICC LINE NURSE. AWARE.
[2020-09-30 08:55] LABS: BASOPHILS % (AUTO) 0.3 % (0-1); EOSINOPHILS # (AUTO) 0.1 X10'3 (0-0.9); EOSINOPHILS % (AUTO) 0.6 % (0-6); HEMOGLOBIN 13.2 g/dl (14.0-17.9); LYMPHOCYTES # (AUTO) 1.3 X10'3 (1.1-4.8); LYMPHOCYTES % (AUTO) 11.7 % (21-51); MEAN CORPUSCULAR HEMOGLOBIN 30.3 PG (27.0-31.0); MEAN CORPUSCULAR HGB CONC 33.9 g/dL (33.0-36.5); MEAN CORPUSCULAR VOLUME 89.4 FL (78-98); MEAN PLATELET VOLUME 8.6 FL (7.4-10.4); MONOCYTES # (AUTO) 1.3 X10'3 (0-0.9); MONOCYTES % (AUTO) 12.2 % (2-12); NEUTROPHILS # (AUTO) 8.3 X10'3 (1.8-7.7); NEUTROPHILS % (AUTO) 75.2 % (42-75); PLATELET COUNT 318 X10'3 (140-440); RED BLOOD COUNT 4.36 X10'6 (4.70-6.10); RED CELL DISTRIBUTION WIDTH 13.9 % (11.5-14.5); WHITE BLOOD COUNT 11.1 X10'3 (4.5-11.0)
--- NOTE | 2020-09-30 09:01 | NUR ---
re paged picc line nurse by sancho valdes.
[2020-09-30 09:03] LABS: ALANINE AMINOTRANSFERASE 86 U/L (12-78); ALBUMIN 2.9 G/DL (3.4-5.0); ALBUMIN/GLOBULIN RATIO 0.9 (1.1-1.5); ALKALINE PHOSPHATASE 99 IU/L (46-116); ANION GAP 6 (8-16); ASPARTATE AMINO TRANSFERASE 21 U/L (10-37); BILIRUBIN,TOTAL 0.2 MG/DL (0.1-1.0); BLOOD UREA NITROGEN 25 MG/DL (7-18); BUN/CREATININE RATIO 22.7 (5.4-32.0); CALCIUM 8.3 MG/DL (8.5-10.1); CHLORIDE 105 MMOL/L (99-107); GLUCOSE 107 MG/DL (70-104); POTASSIUM 4.1 MMOL/L (3.5-5.1); SODIUM 136 MMOL/L (135-145); TOTAL CARBON DIOXIDE 25.5 MMOL/L (24-32); TOTAL PROTEIN 6.2 G/DL (6.4-8.2); eGFR 71 ML/MIN
[2020-09-30 09:19] LABS: PLATELET ESTIMATE NORMAL; TOTAL CELLS COUNTED 100
[2020-09-30 09:36] LABS: C-REACTIVE PROTEIN 0.13 MG/DL (0.0-0.5); LACTATE DEHYDROGENASE 238 U/L (85-227); MAGNESIUM 2.1 MG/DL (1.5-2.4)
[2020-09-30 09:37] LABS: FERRITIN 1203 NG/ML (26-388)
--- NOTE | 2020-09-30 09:43 | NUR ---
spoke to sheryl lundberg regarding picc line nurse not responded ,sheryl charge nurse called and found out there is no picc line nurse available.samantha will try to start an iv on pt.
--- NOTE | 2020-09-30 09:56 | NUR ---
called ct scan olive to notified that pt is ready for ct scan as pt has iv acess available.
[2020-09-30 11:38] VITALS: BP 142/82
== END 2020-09-30 11:41 | disposition home or self-care (01) ==
LOC: ER 07:30
DX: U07.1 COVID-19 (principal); J12.82 Pneumonia due to coronavirus disease 2019; R06.02 Shortness of breath; R07.89 Other chest pain; R06.2 Wheezing; Z79.82 Long term (current) use of aspirin; Z79.899 Other long term (current) drug therapy
CPT/HCPCS: 36415; 71275; 80053; 82728; 83605; 83615; 83735; 84145; 85007; 85025; 85384; 86140; 87040; 93005; 96374; 99285; J1100; Q9967

== ENCOUNTER 2022-01-24 13:37 | Inpatient (IN) | payer BC ==
[~2022-01-24] VITALS: Ht 172.7 cm; Wt 104.0 kg
[~2022-01-24 13:37] MED LIST changes: -ASPI-1264 PO
[2022-01-24] MEDS ORDERED: pantoprazole 40MG/NS 100ML BAG 100 ML IV ONE (14:20)
[2022-01-24] MEDS ORDERED: normal saline 1000ML IV soln IV ONE (14:20)
[2022-01-24] MEDS ORDERED: morphine 4 MG/ML inj SYRINge IV ONE (14:20)
[2022-01-24] MEDS ORDERED: piperacillin/tazo 4.5gm/100ml IVPB IV ONE (14:40)
--- NOTE | 2022-01-24 14:48 | NUR ---
attempted 2 times not able to get iv started ,lauren lundberg tried but unsuccesfull.katerina lundberg is working on ultrasound guided iv.
[2022-01-24 14:51] LABS: BASOPHILS % (AUTO) 0.1 % (0-1); EOSINOPHILS % (AUTO) 0.1 % (0-6); HEMATOCRIT 41.7 % (42.0-52.0); HEMOGLOBIN 14.2 g/dl (14.0-17.9); LYMPHOCYTES # (AUTO) 0.7 X10'3 (1.1-4.8); LYMPHOCYTES % (AUTO) 6.3 % (21-51); MEAN CORPUSCULAR HEMOGLOBIN 30.5 PG (27.0-31.0); MEAN CORPUSCULAR VOLUME 89.9 FL (78-98); MEAN PLATELET VOLUME 9.5 FL (7.4-10.4); MONOCYTES # (AUTO) 0.9 X10'3 (0-0.9); MONOCYTES % (AUTO) 7.8 % (2-12); NEUTROPHILS # (AUTO) 9.9 X10'3 (1.8-7.7); NEUTROPHILS % (AUTO) 85.7 % (42-75); PLATELET COUNT 117 X10'3 (140-440); RED BLOOD COUNT 4.64 X10'6 (4.70-6.10); RED CELL DISTRIBUTION WIDTH 15.3 % (11.5-14.5); WHITE BLOOD COUNT 11.5 X10'3 (4.5-11.0)
[2022-01-24 14:56] LABS: ALANINE AMINOTRANSFERASE 29 U/L (12-78); ALBUMIN 2.9 G/DL (3.4-5.0); ALBUMIN/GLOBULIN RATIO 0.8 (1.1-1.5); ALKALINE PHOSPHATASE 108 IU/L (46-116); ANION GAP 12 (8-16); ASPARTATE AMINO TRANSFERASE 22 U/L (10-37); BILIRUBIN,TOTAL 0.7 MG/DL (0.1-1.0); BLOOD UREA NITROGEN 29 MG/DL (7-18); CALCIUM 8.2 MG/DL (8.5-10.1); CHLORIDE 99 MMOL/L (99-107); CREATININE 2.42 MG/DL (0.60-1.10); GLUCOSE 132 MG/DL (70-104); LIPASE 69 U/L (73-393); POTASSIUM 3.1 MMOL/L (3.5-5.1); SODIUM 135 MMOL/L (135-145); TOTAL CARBON DIOXIDE 24.5 MMOL/L (24-32); TOTAL PROTEIN 6.6 G/DL (6.4-8.2); eGFR 28 ML/MIN
--- NOTE | 2022-01-24 14:57 | NUR ---
to ct scan.
--- NOTE | 2022-01-24 16:47 | NUR ---
labeling specialist at bedside to draw bld culture then will start the iv abx.
[2022-01-24] MEDS ORDERED: normal saline 1000ML IV soln IVB ONE (17:00)
[2022-01-24] MEDS: normal saline 1000ml 1,000 ML IV SCH (17:05)
[2022-01-24] MEDS ORDERED: magnesium hydroxide 30ml (MOM) UD suspension PO PRN (17:05)
[2022-01-24] MEDS ORDERED: ondansetron/PF 4mg/2ml inj IV PRN (17:05)
[2022-01-24] MEDS ORDERED: mag hydrox/Alum hydrox/simeth 30ml oral suspension PO PRN (17:05)
[2022-01-24] MEDS ORDERED: PEG 3350/Na sulf,bicarb,Cl/KCl oral sol 4 liter bottle PO ONE (17:10)
[2022-01-24] MEDS: potassium chloride 10mEq ER tablet PO SCH (17:15)
[2022-01-24] MEDS ORDERED: fentaNYL/PF 50MCG/1 ML 2ML syringe IV ONE (19:05)
[2022-01-24 19:53] LABS: CLARITY,URINE SLIGHTLY CLOUDY (Clear); COLOR,URINE YELLOW (Yellow); GLUCOSE, URINE NEGATIVE (Neg); KETONES,URINE NEGATIVE (Neg); LEUKOCYTE ESTERASE ,URINE SMALL (Neg); NITRITES, URINE POSITIVE (Neg); OCCULT BLOOD,URINE MODERATE (Neg); PROTEIN,URINE 100 mg/dl (Neg); UROBILINOGEN,URINE 0.2 E.U/dL (0.2-1.0)
[2022-01-24 20:00] LABS: UA COLLECTION TYPE URINAL
[2022-01-24] MEDS: docusate sod 100mg capsule PO SCH (20:00)
[2022-01-24 20:15] LABS: SQUAMOUS EPITHELIAL CELL,UR FEW /LPF (FEW)
[2022-01-24 20:17] LABS: BACTERIA,URINE 4+ /HPF (Neg); RBC,URINE 0-2 /HPF (0-2)
--- NOTE | 2022-01-24 22:12 | NUR ---
SPOKE TO DR SUH OVER THE PHONE CONCERNING PAIN MANAGENT FOR PT. HE GAVE TELEPHONE ORDER FOR 2 MG OF MORPHINE EVERY 4 HRS PRN, AND 0.5 MG OF DILAUDID EVERY 6 HRS PRN. ORDER REPEATED BACK FOR ACCURACY.
--- NOTE | 2022-01-24 22:50 | NUR ---
UNABLE TO LOCATE PT'S EKG. NEW EKG WILL BE ORDERED HEART RATE IS ELEVATED.
[2022-01-24] MEDS: morphine 4 MG/ML inj SYRINge IV PRN (22:55)
[2022-01-24] MEDS ORDERED: ARMO150T2 PO (23:10)
[2022-01-24] MEDS ORDERED: LOSA25TA96 PO (23:10)
[2022-01-24] MEDS ORDERED: PRAV20TA4 PO (23:10)
[2022-01-24] MEDS ORDERED: METO-467 PO (23:10)
[2022-01-24] MEDS ORDERED: ALFU10TA10 PO (23:11)
[2022-01-25] VITALS (10 sets, daily range): BP systolic 113–161; BP diastolic 68–94
--- NOTE | 2022-01-25 00:53 | NUR ---
DR SUH GAVE TELEPHONE ORDER FOR 5 MG IV METOPROLOL. ORDER REPEATED BACK FOR ACCURACY.
[2022-01-25] MEDS ORDERED: metoprolol tartrate 1mg/ml inj IV ONE (00:55)
[2022-01-25] MEDS: piperacillin/tazo 3.375gm/50ml 50 ML IV SCH ×3 (01:01→19:00)
[2022-01-25 02:27] LABS: BASOPHILS % (AUTO) 0.1 % (0-1); EOSINOPHILS % (AUTO) 0.1 % (0-6); HEMATOCRIT 43.3 % (42.0-52.0); HEMOGLOBIN 14.9 g/dl (14.0-17.9); LYMPHOCYTES # (AUTO) 0.8 X10'3 (1.1-4.8); LYMPHOCYTES % (AUTO) 6.2 % (21-51); MEAN CORPUSCULAR HGB CONC 34.5 g/dL (33.0-36.5); MEAN CORPUSCULAR VOLUME 90.1 FL (78-98); MEAN PLATELET VOLUME 9.8 FL (7.4-10.4); MONOCYTES % (AUTO) 7.5 % (2-12); NEUTROPHILS # (AUTO) 10.9 X10'3 (1.8-7.7); NEUTROPHILS % (AUTO) 86.1 % (42-75); PLATELET COUNT 132 X10'3 (140-440); RED BLOOD COUNT 4.81 X10'6 (4.70-6.10); RED CELL DISTRIBUTION WIDTH 15.3 % (11.5-14.5); WHITE BLOOD COUNT 12.7 X10'3 (4.5-11.0)
[2022-01-25 02:35] LABS: ANION GAP 12 (8-16); BLOOD UREA NITROGEN 20 MG/DL (7-18); BUN/CREATININE RATIO 13.8 (5.4-32.0); CALCIUM 8.4 MG/DL (8.5-10.1); CHLORIDE 103 MMOL/L (99-107); CREATININE 1.45 MG/DL (0.60-1.10); GLUCOSE 116 MG/DL (70-104); POTASSIUM 3.2 MMOL/L (3.5-5.1); SODIUM 137 MMOL/L (135-145); TOTAL CARBON DIOXIDE 22.1 MMOL/L (24-32); eGFR 51 ML/MIN
[2022-01-25] MEDS: HYDROmorphone inj. 0.5 MG/0.5 ML DISP.SYRIN IV PRN ×3 (02:44→20:50)
[2022-01-25] MEDS: normal saline 1000ml 1,000 ML IV SCH ×3 (03:28→23:05)
[2022-01-25] MEDS: acetaminophen 325mg tablet PO PRN ×3 (04:08→21:09)
[2022-01-25 04:25] LABS: TOTAL CELLS COUNTED 100
[2022-01-25 04:26] LABS: GIANT PLATELET FEW; PLATELET ESTIMATE NORMAL; TOXIC VACUOLATION 1+
[2022-01-25] MEDS: morphine 4 MG/ML inj SYRINge IV PRN ×2 (07:01→12:08)
[2022-01-25] MEDS: docusate sod 100mg capsule PO SCH ×2 (07:41→20:00)
[2022-01-25] MEDS: potassium chloride 10mEq ER tablet PO SCH (07:57)
[2022-01-25] MEDS ORDERED: LANS15CA18 PO (09:16)
[2022-01-25] MEDS ORDERED: DOXY25TA58 PO (09:16)
[2022-01-25] MEDS ORDERED: MULT-1085 PO (09:56)
[2022-01-25] MEDS ORDERED: pantoprazole 40mg Tablet.DR PO PRN (14:25)
[2022-01-25] MEDS ORDERED: LORazepam 1 MG tablet PO SCH (14:25)
[2022-01-25] MEDS ORDERED: LORazepam 1 MG tablet PO PRN (14:52)
[2022-01-25] MEDS ORDERED: LIDOcaine Viscous 15ml cup ONE (14:53)
[2022-01-25] MEDS ORDERED: MIDAZolam 1 MG/ML 5ML VIAL ONE (14:53)
[2022-01-25] MEDS ORDERED: fentaNYL/PF 50MCG/1 ML 2ML syringe ONE (14:53)
--- NOTE | 2022-01-25 15:00 | NUR ---
Pt taken to GI lab for colonoscopy Addendum: 01/25/22 at 1527 by Dorian Araujo RN Amended: Links added.
--- NOTE | 2022-01-25 18:45 | NUR ---
Report given to Sherry GARNICA. Chance given to ask questions. Addendum: 01/25/22 at 1917 by Dorian Araujo RN Amended: Links added.
--- NOTE | 2022-01-25 19:10 | NUR ---
Patient in room PCU 3012. I have received report from NAHUN Alarcon and had the opportunity to ask questions and assume patient care.
[2022-01-25] MEDS: metoprolol tartrate 50mg tablet PO SCH (20:49)
[2022-01-25] MEDS: DOXYLAMINE SUCCINATE 25 MG PO SCH (21:00)
[2022-01-26] VITALS (25 sets, daily range): BP systolic 111–153; BP diastolic 71–103
[2022-01-26] MEDS: piperacillin/tazo 3.375gm/50ml 50 ML IV SCH ×4 (01:08→23:50)
[2022-01-26] MEDS: HYDROmorphone inj. 0.5 MG/0.5 ML DISP.SYRIN IV PRN ×3 (03:05→20:33)
[2022-01-26] MEDS: acetaminophen 325mg tablet PO PRN (04:46)
[2022-01-26 06:25] LABS: BASOPHILS % (AUTO) 0.1 % (0-1); EOSINOPHILS % (AUTO) 0.1 % (0-6); HEMATOCRIT 37.1 % (42.0-52.0); HEMOGLOBIN 12.4 g/dl (14.0-17.9); MEAN CORPUSCULAR HGB CONC 33.6 g/dL (33.0-36.5); MEAN CORPUSCULAR VOLUME 89.4 FL (78-98); MEAN PLATELET VOLUME 9.5 FL (7.4-10.4); MONOCYTES # (AUTO) 1.5 X10'3 (0-0.9); MONOCYTES % (AUTO) 11.7 % (2-12); NEUTROPHILS # (AUTO) 10.2 X10'3 (1.8-7.7); NEUTROPHILS % (AUTO) 80.1 % (42-75); PLATELET COUNT 144 X10'3 (140-440); RED BLOOD COUNT 4.15 X10'6 (4.70-6.10); RED CELL DISTRIBUTION WIDTH 15.7 % (11.5-14.5); WHITE BLOOD COUNT 12.7 X10'3 (4.5-11.0)
[2022-01-26 06:29] LABS: ALBUMIN 2.3 G/DL (3.4-5.0); ANION GAP 2 (8-16); BLOOD UREA NITROGEN 7 MG/DL (7-18); BUN/CREATININE RATIO 6.2 (5.4-32.0); CHLORIDE 102 MMOL/L (99-107); CREATININE 1.13 MG/DL (0.60-1.10); GLUCOSE 127 MG/DL (70-104); SODIUM 132 MMOL/L (135-145); TOTAL CARBON DIOXIDE 28.2 MMOL/L (24-32); eGFR 68 ML/MIN
[2022-01-26 06:34] LABS: POTASSIUM 2.6 MMOL/L (3.5-5.1)
--- NOTE | 2022-01-26 06:48 | NUR ---
Problems reprioritized. Patient report given, questions answered & plan of care reviewed with NAHUN Renner.
--- NOTE | 2022-01-26 07:31 | NUR ---
Patient in room PCU 3012. I have received report from NAHUN GALEANA, and had the opportunity to ask questions and assume patient care.
[2022-01-26] MEDS: tamsulosin 0.4mg capsule PO SCH (08:00)
[2022-01-26] MEDS: docusate sod 100mg capsule PO SCH ×2 (08:00→20:30)
[2022-01-26] MEDS: atorvastatin 10mg tablet PO SCH ×2 (08:00→20:31)
[2022-01-26] MEDS: multivitamins, therapeutics tablet PO SCH (08:00)
[2022-01-26] MEDS: Armodafinil (Nuvigil) 150 MG PO SCH (08:00)
[2022-01-26] MEDS: metoprolol tartrate 50mg tablet PO SCH ×2 (08:00→20:32)
[2022-01-26] MEDS: potassium chloride 10mEq ER tablet PO SCH (08:00)
[2022-01-26] MEDS ORDERED: potassium Cl 20 mEq SR tablet PO PRN (08:15)
[2022-01-26] MEDS ORDERED: potassium Cl 40MEQ/1/2NS 520ml 520 ML IV PRN ×2 (08:15)
[2022-01-26] MEDS ORDERED: potassium CL 10mEq/100ml bag 100 ML IV PRN (10:25)
[2022-01-26] MEDS: potassium CL 10mEq/100ml bag 100 ML IV PRN ×5 (11:02→19:07)
[2022-01-26] MEDS ORDERED: BUPIVAcaine/PF 2.5 mg/ml (0.25%) 30ml vial ONE (12:11)
[2022-01-26] MEDS ORDERED: sevoflurane 250ml liquid IH ONE (12:26)
[2022-01-26] MEDS ORDERED: LIDOcaine 1% (10mg/ml)w/preservative inj. 20ml MDV ONE (12:26)
[2022-01-26] MEDS ORDERED: neostigmine methylsulfate 1 MG/ML 10ml vial ONE (12:26)
[2022-01-26] MEDS ORDERED: midazolam 1 mg/ML 2ml injection ONE (12:37)
[2022-01-26] MEDS ORDERED: fentaNYL/PF 50MCG/1 ML 2ML syringe ONE (12:37)
[2022-01-26] MEDS ORDERED: propofol inj 20 ML IV ONE (12:42)
[2022-01-26] MEDS ORDERED: dexamethasone sod phosphate 4mg/ml inj. ONE (12:42)
[2022-01-26] MEDS ORDERED: ondansetron/PF 4mg/2ml inj ONE (12:43)
[2022-01-26] MEDS ORDERED: glycopyrrolate 0.2mg/ml inj ONE (12:43)
[2022-01-26] MEDS ORDERED: rocuronium 10mg/ml inj IV ONE (12:43)
[2022-01-26] MEDS ORDERED: labetalol 20mg/4ml (5mg/ml) syringe IV ONE (13:30)
--- NOTE | 2022-01-26 13:45 | NUR ---
PT ARRIVED TO [facility] BED ACCOMPANIED BY DR. REMY-ANESTHESIA REPORT GIVEN, PT WAKING UP, DENIES PAIN, DRSG TO RIGHT ABD-CDI WITH KRISTY DRAIN PRESENT, SCDS ON, PIV 20G
[2022-01-26] MEDS ORDERED: morphine 2 MG/ML inj. syringe IV PRN (13:55)
[2022-01-26] MEDS ORDERED: labetalol 20mg/4ml (5mg/ml) syringe IV PRN (13:55)
[2022-01-26] MEDS ORDERED: fentaNYL/PF 50MCG/1 ML 2ML syringe IV PRN (13:55)
[2022-01-26] MEDS ORDERED: ringers solution, lacted 1,000 ML IV SCH (13:55)
[2022-01-26] MEDS ORDERED: hydrALAZINE 20mg/ml inj. IV PRN (13:55)
[2022-01-26] MEDS ORDERED: morphine 4 MG/ML inj SYRINge IV PRN (13:55)
[2022-01-26] MEDS ORDERED: ondansetron/PF 4mg/2ml inj IV PRN (13:55)
[2022-01-26] MEDS: fentaNYL/PF 50MCG/1 ML 2ML syringe IV PRN ×2 (14:13→14:50)
--- NOTE | 2022-01-26 15:25 | NUR ---
PT DOING WELL-PAIN WELL CONTROLLED, VSS, KRISTY SXN INTACT WITH BLOODY DRAINAGE, DRSG TO RT ABD- CDI, SCDS ON, PIV 20G RFA, TOLERATING WATER-NO N/V, REPORT CALLED TO VERONICA GARNICA-ALL QUESTIONS ANSWERED, TAKEN BACK TO ROOM 3012C, BED LOW AND LOCKED, CALL LIGHT GIVEN TO PT, HOOKED UP TO OXYGEN
--- NOTE | 2022-01-26 18:53 | NUR ---
Problems reprioritized. Patient report given, questions answered & plan of care reviewed with NAHUN GALEANA.
[2022-01-26] MEDS: normal saline 1000ml 1,000 ML IV SCH ×2 (19:05→20:01)
[2022-01-26] MEDS: K and/or MAG REPLACEMENT MC SCH (20:00)
[2022-01-26] MEDS: potassium Cl 20 mEq SR tablet PO PRN (20:33)
[2022-01-26] MEDS: DOXYLAMINE SUCCINATE 25 MG PO SCH (21:00)
[2022-01-27 02:00] VITALS: BP 133/78
[2022-01-27] MEDS: HYDROmorphone inj. 0.5 MG/0.5 ML DISP.SYRIN IV PRN ×3 (02:24→20:48)
[2022-01-27] MEDS: normal saline 1000ml 1,000 ML IV SCH ×2 (02:30→15:05)
[2022-01-27 06:00] VITALS: BP 135/80
[2022-01-27 06:31] LABS: BASOPHILS % (AUTO) 0.1 % (0-1); EOSINOPHILS % (AUTO) 0 % (0-6); HEMOGLOBIN 12.1 g/dl (14.0-17.9); LYMPHOCYTES # (AUTO) 0.7 X10'3 (1.1-4.8); LYMPHOCYTES % (AUTO) 6.7 % (21-51); MEAN CORPUSCULAR HEMOGLOBIN 30.2 PG (27.0-31.0); MEAN CORPUSCULAR HGB CONC 33.6 g/dL (33.0-36.5); MEAN CORPUSCULAR VOLUME 89.9 FL (78-98); MEAN PLATELET VOLUME 9.3 FL (7.4-10.4); MONOCYTES # (AUTO) 1.5 X10'3 (0-0.9); MONOCYTES % (AUTO) 13.8 % (2-12); NEUTROPHILS # (AUTO) 8.7 X10'3 (1.8-7.7); NEUTROPHILS % (AUTO) 79.4 % (42-75); PLATELET COUNT 174 X10'3 (140-440); RED CELL DISTRIBUTION WIDTH 15.6 % (11.5-14.5)
[2022-01-27 06:36] LABS: ALBUMIN 2.1 G/DL (3.4-5.0); ANION GAP 6 (8-16); BLOOD UREA NITROGEN 8 MG/DL (7-18); BUN/CREATININE RATIO 8.8 (5.4-32.0); CALCIUM 7.9 MG/DL (8.5-10.1); CHLORIDE 103 MMOL/L (99-107); CREATININE 0.91 MG/DL (0.60-1.10); GLUCOSE 117 MG/DL (70-104); SODIUM 136 MMOL/L (135-145); TOTAL CARBON DIOXIDE 27.5 MMOL/L (24-32); eGFR 87 ML/MIN
--- NOTE | 2022-01-27 06:40 | NUR ---
Problems reprioritized. Patient report given, questions answered & plan of care reviewed with NAHUN Vinson.
[2022-01-27] MEDS: potassium Cl 20 mEq SR tablet PO PRN ×3 (07:06→21:17)
[2022-01-27] MEDS: K and/or MAG REPLACEMENT MC SCH ×2 (07:11→19:02)
[2022-01-27] MEDS: Armodafinil (Nuvigil) 150 MG PO SCH (08:00)
[2022-01-27] MEDS: potassium chloride 10mEq ER tablet PO SCH (08:00)
[2022-01-27] MEDS: tamsulosin 0.4mg capsule PO SCH (08:30)
[2022-01-27] MEDS: piperacillin/tazo 3.375gm/50ml 50 ML IV SCH ×2 (08:30→17:19)
[2022-01-27] MEDS: docusate sod 100mg capsule PO SCH ×2 (08:31→20:47)
[2022-01-27] MEDS: multivitamins, therapeutics tablet PO SCH (08:31)
[2022-01-27] MEDS: metoprolol tartrate 50mg tablet PO SCH ×2 (08:33→21:16)
[2022-01-27 12:00] VITALS: BP 133/83
[2022-01-27 17:00] VITALS: BP 141/87
--- NOTE | 2022-01-27 18:30 | NUR ---
Report given to Vasile GARNICA. Pt eating dinner at this time
[2022-01-27 18:40] VITALS: BP 120/84
[2022-01-27] MEDS: atorvastatin 10mg tablet PO SCH (20:47)
[2022-01-27] MEDS: DOXYLAMINE SUCCINATE 25 MG PO SCH (21:00)
[2022-01-27 22:00] VITALS: BP 120/63
[2022-01-28] MEDS: normal saline 1000ml 1,000 ML IV SCH (01:17)
[2022-01-28] MEDS: piperacillin/tazo 3.375gm/50ml 50 ML IV SCH ×2 (01:46→08:00)
[2022-01-28 06:00] VITALS: BP 141/91
[2022-01-28 06:46] LABS: ALBUMIN 2.1 G/DL (3.4-5.0); ANION GAP 8 (8-16); BLOOD UREA NITROGEN 9 MG/DL (7-18); BUN/CREATININE RATIO 10.1 (5.4-32.0); CALCIUM 7.9 MG/DL (8.5-10.1); CHLORIDE 103 MMOL/L (99-107); CREATININE 0.89 MG/DL (0.60-1.10); GLUCOSE 100 MG/DL (70-104); POTASSIUM 3.4 MMOL/L (3.5-5.1); SODIUM 135 MMOL/L (135-145); TOTAL CARBON DIOXIDE 23.9 MMOL/L (24-32); eGFR 90 ML/MIN
[2022-01-28] MEDS: K and/or MAG REPLACEMENT MC SCH (08:00)
[2022-01-28] MEDS: potassium chloride 10mEq ER tablet PO SCH (08:00)
[2022-01-28 08:32] LABS: BASOPHILS % (AUTO) 0.1 % (0-1); EOSINOPHILS % (AUTO) 0.4 % (0-6); HEMATOCRIT 34.5 % (42.0-52.0); HEMOGLOBIN 11.4 g/dl (14.0-17.9); LYMPHOCYTES # (AUTO) 1.3 X10'3 (1.1-4.8); LYMPHOCYTES % (AUTO) 11.8 % (21-51); MEAN CORPUSCULAR HEMOGLOBIN 29.3 PG (27.0-31.0); MEAN CORPUSCULAR HGB CONC 33.1 g/dL (33.0-36.5); MEAN CORPUSCULAR VOLUME 88.6 FL (78-98); MEAN PLATELET VOLUME 8.9 FL (7.4-10.4); MONOCYTES # (AUTO) 1.4 X10'3 (0-0.9); MONOCYTES % (AUTO) 11.9 % (2-12); NEUTROPHILS # (AUTO) 8.6 X10'3 (1.8-7.7); NEUTROPHILS % (AUTO) 75.8 % (42-75); PLATELET COUNT 197 X10'3 (140-440); RED CELL DISTRIBUTION WIDTH 15.4 % (11.5-14.5); WHITE BLOOD COUNT 11.4 X10'3 (4.5-11.0)
[2022-01-28] MEDS: Armodafinil (Nuvigil) 150 MG PO SCH (09:58)
[2022-01-28] MEDS: potassium Cl 20 mEq SR tablet PO PRN (09:59)
[2022-01-28] MEDS: multivitamins, therapeutics tablet PO SCH (10:00)
[2022-01-28] MEDS: docusate sod 100mg capsule PO SCH (10:00)
[2022-01-28] MEDS: tamsulosin 0.4mg capsule PO SCH (10:00)
[2022-01-28] MEDS: metoprolol tartrate 50mg tablet PO SCH (10:01)
[2022-01-28] MEDS ORDERED: AMOX-117 PO (10:22)
[2022-01-28 10:45] VITALS: BP 154/95
[2022-01-28] MEDS ORDERED: HYDROcodone/acetaminophen 10/325mg tab PO ONE (11:15)
--- NOTE | 2022-01-28 11:36 | NUR ---
Pt discharged home with friends. Medications returned from pharmacy. IV dc'd, tele dcd, blade drain dcd with some fluid drainage after. Extra 4x4 gauze and Tegaderm given to patient to replace gauze if it gets saturated. Pt aware that it may drain slightly for a couple days and then he can put bandaid over site for a couple days and then leave open to air. Pt instructed on no heavy lifting and no soaking in tubs along with other discharge information and does not have any questions at this time. Pt will call for f/u with Dr Euceda, phone number provided. All belongings taken from room. Pt appears appropriate for discharge.
--- NOTE | 2022-01-28 11:36 | NUR ---
Patient has home tramadol so no pain medications prescribed. Pain fairly well controlled, pt given 1x norco prior to discharge.
== END 2022-01-28 11:25 | disposition home or self-care (01) | DRG 853 ==
LOC: ER 13:37 → ED HOLD 17:07 → PCU 3S 01-25 18:40
PROVIDERS: ADMIT Family Medicine; ATTEND Family Medicine
PROC: 0DBP8ZX Excision of Rectum, Via Natural or Artificial Opening Endoscopic, Diagnostic (ICD-10-PCS; principal; 2022-01-25)
PROC: 0DBL8ZX Excision of Transverse Colon, Via Natural or Artificial Opening Endoscopic, Diagnostic (ICD-10-PCS; 2022-01-25)
PROC: 0FT44ZZ Resection of Gallbladder, Percutaneous Endoscopic Approach (ICD-10-PCS; 2022-01-26)
DX: A41.9 Sepsis, unspecified organism (principal); N17.0 Acute kidney failure with tubular necrosis; K85.10 Biliary acute pancreatitis without necrosis or infection; K80.00 Calculus of gallbladder with acute cholecystitis without obstruction; K52.9 Noninfective gastroenteritis and colitis, unspecified; E87.6 Hypokalemia; F31.9 Bipolar disorder, unspecified; I10 Essential (primary) hypertension; F41.9 Anxiety disorder, unspecified; K21.9 Gastro-esophageal reflux disease without esophagitis; Z28.310 Unvaccinated for COVID-19; Z88.8 Allergy status to other drugs, medicaments and biological substances
CPT/HCPCS: 45380; 45385; 99291; Z7506; Z7508; 36415; 71045; 74176; 76700; 80048; 80053; 81001; 82948; 83605; 83690; 84484; 85007; 85025; 87040; 87077; 87081; 87088; 87186; 87635; 99152; 99153; A4215; A4618; A4620; A6449; A7000; C1773; C9113; G0378; J1100; J1170; J2250; J2270; J2405; J2543; J2704; J2710; J3010; J3480; J3490; J7030; J7120

== ENCOUNTER 2022-02-05 11:11 | Inpatient (IN) | payer BC ==
[~2022-02-05] VITALS: Ht 172.7 cm; Wt 109.1 kg
[~2022-02-05 11:11] MED LIST changes: +ALFU10TA10 PO; +AMOX-117 PO; +ARMO150T2 PO; +DOXY25TA58 PO; +LANS15CA18 PO; +MULT-1085 PO; +PRAV20TA4 PO
[2022-02-05 13:57] LABS: BASOPHILS % (AUTO) 0.2 % (0-1); EOSINOPHILS % (AUTO) 0.2 % (0-6); HEMATOCRIT 38.7 % (42.0-52.0); HEMOGLOBIN 12.6 g/dl (14.0-17.9); LYMPHOCYTES # (AUTO) 1.6 X10'3 (1.1-4.8); LYMPHOCYTES % (AUTO) 7.2 % (21-51); MEAN CORPUSCULAR HEMOGLOBIN 29.1 PG (27.0-31.0); MEAN CORPUSCULAR HGB CONC 32.5 g/dL (33.0-36.5); MEAN CORPUSCULAR VOLUME 89.5 FL (78-98); MEAN PLATELET VOLUME 9.2 FL (7.4-10.4); MONOCYTES # (AUTO) 1.5 X10'3 (0-0.9); NEUTROPHILS # (AUTO) 18.5 X10'3 (1.8-7.7); NEUTROPHILS % (AUTO) 85.4 % (42-75); PLATELET COUNT 473 X10'3 (140-440); RED BLOOD COUNT 4.33 X10'6 (4.70-6.10); RED CELL DISTRIBUTION WIDTH 14.5 % (11.5-14.5); WHITE BLOOD COUNT 21.6 X10'3 (4.5-11.0)
[2022-02-05 14:11] LABS: ALANINE AMINOTRANSFERASE 371 U/L (12-78); ALBUMIN 2.7 G/DL (3.4-5.0); ALBUMIN/GLOBULIN RATIO 0.6 (1.1-1.5); ALKALINE PHOSPHATASE 647 IU/L (46-116); ANION GAP 11 (8-16); ASPARTATE AMINO TRANSFERASE 307 U/L (10-37); BILIRUBIN,TOTAL 1.1 MG/DL (0.1-1.0); BLOOD UREA NITROGEN 8 MG/DL (7-18); BUN/CREATININE RATIO 8.2 (5.4-32.0); CALCIUM 8.9 MG/DL (8.5-10.1); CHLORIDE 104 MMOL/L (99-107); CREATININE 0.97 MG/DL (0.60-1.10); GLUCOSE 108 MG/DL (70-104); SODIUM 137 MMOL/L (135-145); TOTAL CARBON DIOXIDE 21.9 MMOL/L (24-32); TOTAL PROTEIN 7.5 G/DL (6.4-8.2); eGFR 81 ML/MIN
[2022-02-05 14:26] LABS: LIPASE 3082 U/L (73-393)
[2022-02-05] MEDS ORDERED: ondansetron/PF 4mg/2ml inj IV ONE (15:45)
[2022-02-05] MEDS ORDERED: piperacillin/tazo 4.5gm/100ml 100 ML IV ONE (15:45)
[2022-02-05] MEDS ORDERED: morphine 4 MG/ML inj SYRINge IV ONE ×2 (16:35→22:10)
[2022-02-05] MEDS ORDERED: normal saline 1000ML IV soln IVB ONE ×2 (19:15)
[2022-02-05 20:35] LABS: CLARITY,URINE CLEAR (Clear); COLOR,URINE YELLOW (Yellow); GLUCOSE, URINE NEGATIVE (Neg); KETONES,URINE TRACE mg/dl (Neg); LEUKOCYTE ESTERASE ,URINE NEGATIVE (Neg); NITRITES, URINE NEGATIVE (Neg); OCCULT BLOOD,URINE NEGATIVE (Neg); PH,URINE 5.5 (4.8-8.0); PROTEIN,URINE TRACE mg/dl (Neg); UROBILINOGEN,URINE 0.2 E.U/dL (0.2-1.0)
[2022-02-05 20:50] LABS: UA COLLECTION TYPE URINAL
[2022-02-05 20:52] LABS: BACTERIA,URINE FEW /HPF (Neg); SQUAMOUS EPITHELIAL CELL,UR FEW /LPF (FEW)
[2022-02-05] MEDS ORDERED: acetaminophen 325mg tablet PO ONE (21:25)
[2022-02-05] MEDS ORDERED: magnesium hydroxide 30ml (MOM) UD suspension PO PRN (22:55)
[2022-02-05] MEDS ORDERED: ondansetron/PF 4mg/2ml inj IV PRN (22:55)
[2022-02-05] MEDS ORDERED: acetaminophen 325mg tablet PO PRN (22:55)
[2022-02-05] MEDS ORDERED: magnesium 2GM in 50ml NS 50 ML IV PRN (22:55)
[2022-02-05] MEDS ORDERED: potassium CL 10mEq/100ml bag 100 ML IV PRN (22:55)
[2022-02-05] MEDS ORDERED: mag hydrox/Alum hydrox/simeth 30ml oral suspension PO PRN (22:55)
[2022-02-05] MEDS ORDERED: magnesium 4gm in 100ml NS 100 ML IV PRN (22:55)
[2022-02-05] MEDS ORDERED: magnesium Cl slow-release 64mg tablet PO PRN (22:55)
[2022-02-05 23:18] LABS: MAGNESIUM 1.9 MG/DL (1.5-2.4); POTASSIUM 3.8 MMOL/L (3.5-5.1)
[2022-02-06] VITALS (14 sets, daily range): BP systolic 119–161; BP diastolic 76–97
[2022-02-06] MEDS: piperacillin/tazo 3.375gm/50ml 50 ML IV SCH ×3 (00:50→16:31)
[2022-02-06] MEDS: morphine 2 MG/ML inj. syringe IV PRN ×4 (01:16→20:15)
[2022-02-06] MEDS ORDERED: PRAV20TA4 PO (02:49)
[2022-02-06] MEDS ORDERED: AMLO2.5T2 PO (02:49)
[2022-02-06] MEDS ORDERED: LORA2TAB96 PO (02:49)
[2022-02-06] MEDS ORDERED: LOSA100T57 PO (02:53)
[2022-02-06] MEDS: normal saline 1000ml 1,000 ML IV SCH ×3 (05:41→16:31)
[2022-02-06 06:12] LABS: BASOPHILS % (AUTO) 0.2 % (0-1); EOSINOPHILS % (AUTO) 0 % (0-6); LYMPHOCYTES # (AUTO) 1.1 X10'3 (1.1-4.8); LYMPHOCYTES % (AUTO) 7.6 % (21-51); MEAN CORPUSCULAR HEMOGLOBIN 29.8 PG (27.0-31.0); MEAN CORPUSCULAR HGB CONC 33.5 g/dL (33.0-36.5); MEAN CORPUSCULAR VOLUME 89.1 FL (78-98); MEAN PLATELET VOLUME 8.8 FL (7.4-10.4); MONOCYTES # (AUTO) 0.9 X10'3 (0-0.9); MONOCYTES % (AUTO) 6.6 % (2-12); NEUTROPHILS % (AUTO) 85.6 % (42-75); PLATELET COUNT 467 X10'3 (140-440); RED CELL DISTRIBUTION WIDTH 14.8 % (11.5-14.5); WHITE BLOOD COUNT 14.1 X10'3 (4.5-11.0)
[2022-02-06 06:22] LABS: ALANINE AMINOTRANSFERASE 315 U/L (12-78); ALBUMIN 2.2 G/DL (3.4-5.0); ALBUMIN/GLOBULIN RATIO 0.5 (1.1-1.5); ALKALINE PHOSPHATASE 468 IU/L (46-116); ANION GAP 6 (8-16); ASPARTATE AMINO TRANSFERASE 186 U/L (10-37); BILIRUBIN,TOTAL 0.7 MG/DL (0.1-1.0); BLOOD UREA NITROGEN 6 MG/DL (7-18); BUN/CREATININE RATIO 6.7 (5.4-32.0); CALCIUM 8.3 MG/DL (8.5-10.1); CHLORIDE 107 MMOL/L (99-107); GLUCOSE 111 MG/DL (70-104); MAGNESIUM 1.7 MG/DL (1.5-2.4); POTASSIUM 3.5 MMOL/L (3.5-5.1); SODIUM 137 MMOL/L (135-145); TOTAL CARBON DIOXIDE 24.5 MMOL/L (24-32); TOTAL PROTEIN 6.5 G/DL (6.4-8.2); eGFR 89 ML/MIN
--- NOTE | 2022-02-06 06:57 | NUR ---
Patient in room ORTHO 4011. I have received report and had the opportunity to ask questions and assume patient care.
[2022-02-06] MEDS: metoprolol tartrate 50mg tablet PO SCH ×2 (07:57→20:24)
[2022-02-06] MEDS: losartan 50mg tablet PO SCH (07:58)
[2022-02-06] MEDS: amLODIPine 2.5mg tablet PO SCH (07:58)
[2022-02-06] MEDS: lansoprazole 15mg solutab PO SCH (07:58)
[2022-02-06] MEDS: LORazepam 1 MG tablet PO SCH (07:58)
[2022-02-06] MEDS: K and/or MAG REPLACEMENT MC SCH ×2 (08:00→20:00)
[2022-02-06] MEDS: docusate sod 100mg capsule PO SCH ×2 (08:00→20:24)
[2022-02-06] MEDS ORDERED: non-formulary drug (Multivitamin (Multi Vitamin Daily) 1 TAB) PO SCH (08:00)
[2022-02-06] MEDS ORDERED: losartan 50mg tablet PO SCH (08:00)
[2022-02-06] MEDS ORDERED: armodafinil 50mg tablet PO SCH (08:00)
[2022-02-06] MEDS: heparin, porcine 5000 units/ml vial SQ SCH ×2 (08:00→20:24)
[2022-02-06] MEDS ORDERED: midazolam 1 mg/ML 2ml injection ONE (10:28)
[2022-02-06] MEDS ORDERED: fentaNYL/PF 50MCG/1 ML 2ML syringe ONE (10:28)
--- NOTE | 2022-02-06 11:30 | NUR ---
Pt returned to floor from IR with drain to right abdomen draining dark green bile looking fluid in large quantity. VSS, being monitored.
--- NOTE | 2022-02-06 18:30 | NUR ---
Problems reprioritized. Patient report given, questions answered & plan of care reviewed with NAHUN Gabriel.
[2022-02-06] MEDS: pravastatin 40mg tablet PO SCH (20:24)
[2022-02-06] MEDS: ALFUZOSIN 10 MG PO SCH (20:36)
[2022-02-06] MEDS ORDERED: non-formulary drug (Doxylamine Succinate (Unisom) 1 TAB) PO SCH (21:00)
[2022-02-07] MEDS: morphine 2 MG/ML inj. syringe IV PRN ×3 (00:22→07:15)
[2022-02-07] MEDS: piperacillin/tazo 3.375gm/50ml 50 ML IV SCH ×3 (00:25→16:07)
[2022-02-07] MEDS: normal saline 1000ml 1,000 ML IV SCH ×3 (05:41→23:40)
[2022-02-07 06:00] VITALS: BP 141/87
[2022-02-07 06:26] LABS: BASOPHILS % (AUTO) 0.3 % (0-1); EOSINOPHILS % (AUTO) 0.3 % (0-6); HEMATOCRIT 29.5 % (42.0-52.0); LYMPHOCYTES # (AUTO) 1.4 X10'3 (1.1-4.8); MEAN CORPUSCULAR HEMOGLOBIN 29.9 PG (27.0-31.0); MEAN CORPUSCULAR HGB CONC 33.7 g/dL (33.0-36.5); MEAN CORPUSCULAR VOLUME 88.7 FL (78-98); MEAN PLATELET VOLUME 8.8 FL (7.4-10.4); NEUTROPHILS # (AUTO) 8.5 X10'3 (1.8-7.7); NEUTROPHILS % (AUTO) 77.4 % (42-75); PLATELET COUNT 419 X10'3 (140-440); RED BLOOD COUNT 3.33 X10'6 (4.70-6.10); RED CELL DISTRIBUTION WIDTH 14.4 % (11.5-14.5)
[2022-02-07 06:36] LABS: ALANINE AMINOTRANSFERASE 155 U/L (12-78); ALBUMIN 1.9 G/DL (3.4-5.0); ALBUMIN/GLOBULIN RATIO 0.4 (1.1-1.5); ALKALINE PHOSPHATASE 311 IU/L (46-116); ANION GAP 6 (8-16); ASPARTATE AMINO TRANSFERASE 46 U/L (10-37); BLOOD UREA NITROGEN 6 MG/DL (7-18); CALCIUM 8.2 MG/DL (8.5-10.1); CHLORIDE 104 MMOL/L (99-107); CREATININE 0.75 MG/DL (0.60-1.10); GLUCOSE 89 MG/DL (70-104); MAGNESIUM 1.9 MG/DL (1.5-2.4); POTASSIUM 3.2 MMOL/L (3.5-5.1); SODIUM 135 MMOL/L (135-145); TOTAL CARBON DIOXIDE 25.2 MMOL/L (24-32); TOTAL PROTEIN 6.2 G/DL (6.4-8.2); eGFR > 90 ML/MIN
[2022-02-07] MEDS: heparin, porcine 5000 units/ml vial SQ SCH ×2 (06:53→21:17)
[2022-02-07] MEDS: docusate sod 100mg capsule PO SCH ×2 (07:08→21:17)
[2022-02-07] MEDS: lansoprazole 15mg solutab PO SCH (07:09)
[2022-02-07] MEDS: amLODIPine 2.5mg tablet PO SCH (07:11)
[2022-02-07] MEDS: losartan 50mg tablet PO SCH (07:11)
[2022-02-07] MEDS: LORazepam 1 MG tablet PO SCH (07:12)
[2022-02-07] MEDS: metoprolol tartrate 50mg tablet PO SCH ×2 (07:12→21:24)
[2022-02-07] MEDS: POTASSIUM BICARB 20meq eff tab 20 MEQ TABLET.EFF PO PRN ×2 (07:16→13:24)
[2022-02-07] MEDS: K and/or MAG REPLACEMENT MC SCH ×2 (07:28→19:10)
[2022-02-07 07:34] LABS: BILIRUBIN,TOTAL 0.4 MG/DL (0.1-1.0)
[2022-02-07] MEDS: ARMODAFINIL 50 MG PO SCH (07:34)
[2022-02-07 11:49] VITALS: BP 142/88
--- NOTE | 2022-02-07 13:06 | NUR ---
PAGER ID: [phone] MESSAGE: [phone] Yuli Aguirre: patient states the morphine does not help take pain away completely. Also ID would like central line dc'd. are you okay with this? thanks, shreya [phone]
[2022-02-07] MEDS: HYDROmorphone 1 mg/ml syringe IV PRN ×3 (13:24→21:24)
[2022-02-07 14:29] VITALS: BP 127/84
--- NOTE | 2022-02-07 15:57 | NUR ---
PAGER ID: [phone] MESSAGE: [phone] Yuli Aguirre: Can patient eat dinner if nothing is being done today? he's been NPO since admission. thanks! shreya [phone]
[2022-02-07 18:00] VITALS: BP 158/91
--- NOTE | 2022-02-07 18:26 | NUR ---
Problems reprioritized. Patient report given, questions answered & plan of care reviewed with NAHUN Taylor.
--- NOTE | 2022-02-07 18:48 | NUR ---
Patient in room ORTHO 4011. I have received report from Gertrudis GARNICA and had the opportunity to ask questions and assume patient care.
[2022-02-07] MEDS: ALFUZOSIN 10 MG PO SCH (21:00)
[2022-02-07] MEDS: pravastatin 40mg tablet PO SCH (21:17)
[2022-02-07 22:00] VITALS: BP 143/96
[2022-02-08] MEDS: piperacillin/tazo 3.375gm/50ml 50 ML IV SCH ×2 (00:12→07:40)
[2022-02-08] MEDS: HYDROmorphone 1 mg/ml syringe IV PRN ×3 (01:59→07:45)
--- NOTE | 2022-02-08 06:18 | NUR ---
Problems reprioritized. Patient report given, questions answered & plan of care reviewed with Gertrudis GARNICA.
[2022-02-08 06:30] VITALS: BP 158/91
[2022-02-08 07:35] LABS: BASOPHILS % (AUTO) 0.4 % (0-1); EOSINOPHILS # (AUTO) 0.1 X10'3 (0-0.9); HEMATOCRIT 33.5 % (42.0-52.0); HEMOGLOBIN 11.3 g/dl (14.0-17.9); LYMPHOCYTES # (AUTO) 1.6 X10'3 (1.1-4.8); LYMPHOCYTES % (AUTO) 16.7 % (21-51); MEAN CORPUSCULAR HEMOGLOBIN 29.9 PG (27.0-31.0); MEAN CORPUSCULAR HGB CONC 33.9 g/dL (33.0-36.5); MEAN CORPUSCULAR VOLUME 88.2 FL (78-98); MEAN PLATELET VOLUME 8.5 FL (7.4-10.4); MONOCYTES # (AUTO) 0.8 X10'3 (0-0.9); MONOCYTES % (AUTO) 8.5 % (2-12); NEUTROPHILS % (AUTO) 73.4 % (42-75); PLATELET COUNT 435 X10'3 (140-440); WHITE BLOOD COUNT 9.5 X10'3 (4.5-11.0)
[2022-02-08] MEDS: docusate sod 100mg capsule PO SCH (07:37)
[2022-02-08] MEDS: metoprolol tartrate 50mg tablet PO SCH (07:37)
[2022-02-08] MEDS: amLODIPine 2.5mg tablet PO SCH (07:38)
[2022-02-08] MEDS: LORazepam 1 MG tablet PO SCH (07:38)
[2022-02-08] MEDS: lansoprazole 15mg solutab PO SCH (07:39)
[2022-02-08] MEDS: losartan 50mg tablet PO SCH (07:39)
[2022-02-08] MEDS: heparin, porcine 5000 units/ml vial SQ SCH (07:42)
[2022-02-08] MEDS: ARMODAFINIL 50 MG PO SCH (07:42)
[2022-02-08 07:54] LABS: ALANINE AMINOTRANSFERASE 109 U/L (12-78); ALBUMIN 2.1 G/DL (3.4-5.0); ALBUMIN/GLOBULIN RATIO 0.4 (1.1-1.5); ALKALINE PHOSPHATASE 263 IU/L (46-116); ANION GAP 8 (8-16); ASPARTATE AMINO TRANSFERASE 28 U/L (10-37); BILIRUBIN,TOTAL 0.4 MG/DL (0.1-1.0); BLOOD UREA NITROGEN 2 MG/DL (7-18); BUN/CREATININE RATIO 2.4 (5.4-32.0); CALCIUM 8.6 MG/DL (8.5-10.1); CHLORIDE 101 MMOL/L (99-107); CREATININE 0.85 MG/DL (0.60-1.10); GLUCOSE 93 MG/DL (70-104); MAGNESIUM 1.8 MG/DL (1.5-2.4); POTASSIUM 3.1 MMOL/L (3.5-5.1); SODIUM 138 MMOL/L (135-145); TOTAL CARBON DIOXIDE 29.2 MMOL/L (24-32); TOTAL PROTEIN 7.1 G/DL (6.4-8.2); eGFR > 90 ML/MIN
[2022-02-08] MEDS: K and/or MAG REPLACEMENT MC SCH (08:00)
[2022-02-08] MEDS: POTASSIUM BICARB 20meq eff tab 20 MEQ TABLET.EFF PO PRN ×2 (09:53→13:16)
[2022-02-08] MEDS: HYDROmorphone 2mg tablet PO PRN ×2 (09:59→13:22)
[2022-02-08] MEDS: normal saline 1000ml 1,000 ML IV SCH (10:55)
[2022-02-08 11:18] VITALS: BP 137/91
[2022-02-08] MEDS ORDERED: HYDR-3965 PO (12:09)
[2022-02-08] MEDS ORDERED: CIPR-259 PO (12:11)
--- NOTE | 2022-02-08 13:26 | NUR ---
PAGER ID: [phone] MESSAGE: [phone] Yuli Aguirre: patient requesting to speak with you prior to discharging. shreya lopez [phone]
[2022-02-08 14:00] VITALS: BP 133/95
--- NOTE | 2022-02-08 14:57 | NUR ---
Patient stable and appropriate for discharge home. IV removed, groundwater monitoring technician removed. All belongings taken from room. All discharge instructions and education given and reviewed with patient. Patient was sent home with his KRISTY drain intact and draining. He was instructed on care of KRISTY and how to drain and record. He was given a record log to record drainage and return it to his appointment with Dr. Euceda that has been arranged for SaturdayFebruary 13.
== END 2022-02-08 14:50 | disposition home or self-care (01) | DRG 863 ==
LOC: ER 11:12 → ED HOLD 22:59 → EDBEDREQ 02-06 00:08 → ORTHO 4S 02-06 00:56
PROVIDERS: ADMIT Internal Medicine; ATTEND Internal Medicine
PROC: 0W9H30Z Drainage of Retroperitoneum with Drainage Device, Percutaneous Approach (ICD-10-PCS; principal; 2022-02-06)
DX: K68.11 Postprocedural retroperitoneal abscess (principal); E78.5 Hyperlipidemia, unspecified; F41.9 Anxiety disorder, unspecified; N40.0 Benign prostatic hyperplasia without lower urinary tract symptoms; Z90.49 Acquired absence of other specified parts of digestive tract; Z88.8 Allergy status to other drugs, medicaments and biological substances; Z86.16 Personal history of COVID-19; Z79.899 Other long term (current) drug therapy; E87.6 Hypokalemia
CPT/HCPCS: 36415; 49406; 71045; 74176; 74181; 80053; 81001; 83605; 83690; 83735; 84132; 84145; 85025; 87040; 87070; 87077; 87088; 87186; 96361; 96374; 96375; 96376; 99152; 99153; 99285; A4615; A6258; A6402; A6449; C1751; G0378; J1170; J1644; J2250; J2270; J2405; J2543; J3010; J7030; J7040

== ENCOUNTER 2022-02-17 03:14 | Emergency (ER) | payer BC ==
[~2022-02-17] VITALS: Ht 172.7 cm; Wt 109.0 kg
[~2022-02-17 03:14] MED LIST changes: -AMOX-117 PO; -ARMO250T4 PO; -ASEN10TA SL; -DEXA6TAB PO; -DOXY25TA58 PO; -DULO-31 PO; +HYDR-3965 PO; -LANS15CA18 PO; +LOSA100T57 PO; -LOSA25TA96 PO; -MULT-1085 PO; -VILA40TA PO
[2022-02-17 04:12] LABS: BASOPHILS % (AUTO) 0.4 % (0-1); EOSINOPHILS # (AUTO) 0.2 X10'3 (0-0.9); EOSINOPHILS % (AUTO) 2.3 % (0-6); HEMATOCRIT 35.2 % (42.0-52.0); HEMOGLOBIN 11.7 g/dl (14.0-17.9); LYMPHOCYTES % (AUTO) 26.8 % (21-51); MEAN CORPUSCULAR HEMOGLOBIN 28.9 PG (27.0-31.0); MEAN CORPUSCULAR HGB CONC 33.3 g/dL (33.0-36.5); MEAN CORPUSCULAR VOLUME 86.9 FL (78-98); MEAN PLATELET VOLUME 9.1 FL (7.4-10.4); MONOCYTES # (AUTO) 0.8 X10'3 (0-0.9); MONOCYTES % (AUTO) 10.3 % (2-12); NEUTROPHILS # (AUTO) 4.5 X10'3 (1.8-7.7); NEUTROPHILS % (AUTO) 60.2 % (42-75); PLATELET COUNT 280 X10'3 (140-440); RED BLOOD COUNT 4.05 X10'6 (4.70-6.10); RED CELL DISTRIBUTION WIDTH 14.6 % (11.5-14.5); WHITE BLOOD COUNT 7.5 X10'3 (4.5-11.0)
[2022-02-17 04:14] LABS: CLARITY,URINE CLEAR (Clear); COLOR,URINE YELLOW (Yellow); GLUCOSE, URINE NEGATIVE (Neg); KETONES,URINE NEGATIVE (Neg); LEUKOCYTE ESTERASE ,URINE NEGATIVE (Neg); NITRITES, URINE NEGATIVE (Neg); OCCULT BLOOD,URINE NEGATIVE (Neg); PH,URINE 5.5 (4.8-8.0); PROTEIN,URINE NEGATIVE (Neg); UROBILINOGEN,URINE 0.2 E.U/dL (0.2-1.0)
[2022-02-17 04:15] LABS: UA COLLECTION TYPE CLN CATCH MIDSTREAM
[2022-02-17 04:48] LABS: ALANINE AMINOTRANSFERASE 43 U/L (12-78); ALBUMIN 2.9 G/DL (3.4-5.0); ALBUMIN/GLOBULIN RATIO 0.7 (1.1-1.5); ALKALINE PHOSPHATASE 139 IU/L (46-116); ANION GAP 10 (8-16); ASPARTATE AMINO TRANSFERASE 20 U/L (10-37); BILIRUBIN,TOTAL 0.3 MG/DL (0.1-1.0); BLOOD UREA NITROGEN 10 MG/DL (7-18); CALCIUM 8.4 MG/DL (8.5-10.1); CHLORIDE 105 MMOL/L (99-107); CREATININE 0.91 MG/DL (0.60-1.10); GLUCOSE 91 MG/DL (70-104); MAGNESIUM 2.1 MG/DL (1.5-2.4); POTASSIUM 4.1 MMOL/L (3.5-5.1); SODIUM 140 MMOL/L (135-145); TOTAL PROTEIN 6.8 G/DL (6.4-8.2); eGFR 87 ML/MIN
[2022-02-17] MEDS ORDERED: iohexol 300mg/ml 100ml inj. ONE (05:34)
[2022-02-17 09:26] VITALS: BP 112/76
[2022-02-17 09:46] LABS: URINE AMPHETAMINE SCREEN NEGATIVE (Neg); URINE BARBITUATE SCREEN NEGATIVE (Neg); URINE BENZODIAZEPINES SCREEN NEGATIVE (Neg); URINE CANNABINOID SCREEN NEGATIVE (Neg); URINE COCAINE SCREEN NEGATIVE (Neg); URINE METHADONE SCREEN NEGATIVE (Neg); URINE OPIATE SCREEN NEGATIVE (Neg); URINE PHENCYCLIDINE SCREEN NEGATIVE (Neg)
== END 2022-02-17 10:47 | disposition home or self-care (01) ==
LOC: ER 03:14
DX: R53.1 Weakness (principal); T40.605A Adverse effect of unspecified narcotics, initial encounter; Z20.822 Contact with and (suspected) exposure to COVID-19; F41.9 Anxiety disorder, unspecified; Z90.49 Acquired absence of other specified parts of digestive tract; Z60.2 Problems related to living alone; Z88.1 Allergy status to other antibiotic agents; Z79.899 Other long term (current) drug therapy; Y92.89 Other specified places as the place of occurrence of the external cause
CPT/HCPCS: 36415; 70450; 71045; 74177; 80053; 80305; 81003; 82140; 83605; 83735; 84145; 84443; 85025; 87040; 87502; 87503; 87635; 93005; 99285; C9803; J3490; Q9967; A6258